=== PATIENT | male | born 1965 | race Caucasian/White ===

== ENCOUNTER 2016-04-19 08:03 | Observation (INO) ==
--- NOTE | 2016-04-19 08:05 | Emergency Department Note ---
Disposition Clinical Impression: Atrial fibrillation Qualifiers: Atrial fibrillation type: unspecified Qualified Code(s): I48.91 - Unspecified atrial fibrillation Disposition: Admitted As Inpatient Condition: Fair Referrals: Arnold Dan MD [Primary Care Provider] - Forms: ED Satisfaction Letter Time of Disposition: 10:30 Arrhythmia/Palpitations HPI - General Chief Complaint: ED Arrhythmia/Palpitations Stated Complaint: palpitations Time Seen by Provider: 04/19/16 08:04 Source: patient Nursing Notes Reviewed: Yes Vital Signs Reviewed: Yes - History of Present Illness HPI Narrative: Patient is a 50-year-old male who presents to [facility] ED with a chief complaint of new onset atrial fibrillation with RVR. He presents from same day surgery as he was scheduled for a left-sided nephrectomy secondary to a mass/"weak kidney". Patient is asymptomatic at this time. He received a Xopenex treatment prior to them noticing this. He received an EKG and was brought in for apparent atrial flutter. Denies any prior cardiac history. No other medical problems. Pt Subjective Complaint: rapid heart beat Onset (ago): unknown Duration: constant Severity: mild Associated symptoms: Reports: denies other symptoms - Related Data Home Medications Medication Instructions Recorded Confirmed Baclofen [Lioresal] 20 mg PO BID 12/22/14 04/19/16 Losartan/Hydrochlorothiazide 1 tab PO DAILY 12/22/14 04/19/16 [Hyzaar 100-25 Tablet] Pravastatin Sodium [Pravachol] 40 mg PO DAILY 12/22/14 04/19/16 TraMADol [Ultram] 50 mg PO BID 12/22/14 04/19/16 Gabapentin 600 mg PO TID 12/23/15 04/19/16 Multivitamin [Multivitamins] 1 each PO DAILY 12/23/15 04/19/16 Omeprazole [PriLOSEC] 20 mg PO BID 12/23/15 04/19/16 Oxcarbazepine 300 mg PO TID 12/23/15 04/19/16 Sertraline [Zoloft] 150 mg PO DAILY 12/23/15 04/19/16 Sitagliptin Phos/Metformin HCl 1 tab PO DAILY 12/23/15 04/19/16 [Janumet Xr 100-1,000 mg Tablet] Vitamin B Complex 1 each PO DAILY 04/19/16 04/19/16 Allergies Allergy/AdvReac Type Severity Reaction Status Date / Time No Known Allergies Allergy Verified 04/19/16 07:18 All systems ED: reviewed and negative except as stated. Past Medical History - Past Medical History Attestation: Yes The following information was validated with the patient. Source: patient Medical history: Reports: hyperlipidemia, hypertension, kidney stones Surgical history: Reports: herniorrhaphy, orthopedic, other, sinus surgery Psychiatric history: Reports: no psych history - Social History Smoking Status: Current every day smoker Smokeless Tobacco Status: No Alcohol use: Reports: occasionally Drug use: Reports: none Physical Exam - General Limitations: no limitations General appearance: alert, in no apparent distress - Head Head exam: atraumatic, normocephalic, normal inspection - Eye Eye exam: Present: normal appearance, PERRL, EOMI - ENT ENT exam: normal exam, normal oropharynx, mucous membranes moist - Neck Neck exam: Present: normal inspection, full ROM, trachea midline - Chest Chest inspection: Present: normal inspection, symmetric chest wall rise - Respiratory Respiratory exam: Present: normal lung sounds bilaterally - Cardiovascular Cardiovascular exam: Present: tachycardia, irregular rhythm - Abdominal Exam Abdominal exam: Present: soft, Non-Tender. Absent: tenderness, distention, guarding, rebound, rigidity - Extremities Exam Extremities exam: Present: normal inspection, full ROM. Absent: tenderness, pedal edema - Back Exam Back exam: Present: normal inspection, full ROM. Absent: tenderness - Neurological Exam Neurological exam: Present: alert, oriented X3 - Psychiatric Psychiatric exam: Present: normal affect, normal mood - Skin Skin exam: Present: warm, dry, intact, normal color Course Course Narrative: Patient seen and examined. Complaining of no symptoms at this time. He was found to have an elevated heart rate at same day surgery. He was given a Xopenex treatment and then they did an EKG which showed possible a flutter. He was brought in to the emergency department for further evaluation. We observed him for a period of approximately 30 minutes and there was no improvement in his heart rate. On the monitor, he appeared to have more atrial fibrillation with RVR at this time as he is irregularly irregular. We will go ahead and do a cardiac workup on him. - Reevaluation(s) Reevaluation #1: Cardiac workup was unremarkable. I spoke with tool tender Dr. Hancock who will see him on the floor. I spoke with hospitalist Dr. Jackson who would like him to have Cardizem at this time. I ordered 15 mg of IV Cardizem. Upon talking with the family again, it seems that he has had episodes of elevated heart rate for that were not addressed so the timing of when the atrial fibrillation started is unknown. Time: 10:27 Vital Signs Temperature 97.6 F 04/19/16 08:05 Pulse Rate 136 04/19/16 08:05 Respiratory Rate 18 04/19/16 08:05 Blood Pressure 133/107 04/19/16 08:05 O2 Sat by Pulse Oximetry 96 04/19/16 08:05 Temperature 97.6 F 04/19/16 08:05 Pulse Rate 137 04/19/16 08:39 Respiratory Rate 13 04/19/16 08:39 Blood Pressure 137/94 04/19/16 08:39 O2 Sat by Pulse Oximetry 96 04/19/16 08:39 Oxygen Delivery Oxygen Delivery Room Air Arrhythmia/Palpitations - Medical Records Medical records reviewed: Yes I reviewed the patient's medical records. - Lab Data Lab results reviewed: Yes I reviewed the patient's lab results. Result diagrams: 04/19/16 08:46 04/19/16 08:46 Lab Results 04/19/16 04/19/16 04/19/16 Range/Units 08:46 08:46 08:46 WBC 8.9 (4.3-11.1) K/mcL RBC 4.38 (4.19-5.50) M/mcL Hgb 13.7 (12.9-16.9) g/dL Hct 39.2 (37.5-50.1) % MCV 89.5 (83.0-100.0) fL MCH 31.3 (28.0-33.3) pg MCHC 34.9 (31.6-35.5) g/dL RDW 12.7 (11.5-14.5) % Plt Count 221 (140-400) K/mcL MPV 9.0 L (9.4-12.4) fL Immature Gran % 0.3 (0-4) % Seg Neutrophils % 53.3 % Lymphocytes % 37.2 % Monocytes % 7.1 % Eosinophils % 1.7 % Basophils % 0.4 % Neutrophils # 4.7 (1.6-8.9) K/mcL Lymphocytes # 3.3 (0.6-4.6) K/mcL Monocytes # 0.6 (0.0-1.3) K/mcL Eosinophils # 0.2 (0.0-0.6) K/mcL Basophils # 0.0 (0.0-0.2) K/mcL Sodium 139 (136-145) mEq/L Potassium 3.8 (3.5-4.5) mEq/L Chloride 107 (98-109) mEq/L Carbon Dioxide 22 (19-29) mEq/L BUN 28 H (8-26) mg/dL Creatinine 1.04 (0.72-1.25) mg/dL Est GFR ( Amer) > 60 (> 60) Est GFR (Non-Af Amer) > 60 (> 60) BUN/Creatinine Ratio 27 H (6-26) Glucose 194 H (70-99) mg/dL Calculated Osmolality 299 (280-300) Calcium 9.2 (8.6-10.8) mg/dL Troponin I 0.01 (0-0.03) ng/mL - Radiology Data Radiology results reviewed: Yes I reviewed the patient's radiology results. - EKG Data EKG attestation: Yes I reviewed and interpreted this EKG. EKG results narrative: EKG done at 726 shows atrial flutter with a rate of [address] elevation or depression. This EKG was done at same day surgery. EKG done at 806 shows atrial fibrillation with RVR with a rate of [address] elevation or depression.
--- NOTE | 2016-04-19 08:27 | Emergency Department Note ---
START Narrative - START START: I examined this patient and my medical decision-making was reviewed with the TEXTILE MACHINERY SALES REPRESENTATIVE/PA/Advanced Practice Nurse/Resident Physician. I agree with the documented findings, disposition and treatment plan as described except to the extent set forth below. ED attending note: Patient seen with emergency medicine resident Dr. Rebolledo. Please see a copy of his note for details of the H&P, evaluation, management and disposition of this patient. We independently had [id number] contact with the patient Briefly: A 50-year-old male was going to the MORNING for a left nephrectomy, was given Xopenex and they noticed he was tachycardic at 135. They were concerned about possible atrial fibrillation or atrial flutter. Patient offers no symptoms from his chest at all. No shortness of breath, no chest pain, no palpitations, no lightheadedness. Patient states that he was here about a week or so ago for "gallbladder pain", and his heart rate was in the 130s per his spouse at bedside but "nothing was done". Patient's blood pressure was otherwise within normal limits. EKG shows a sinus tachycardia with no signs of acute ischemic changes. Regular rhythm without any premature or complexes. We will observe the patient for a total of a half hour and see if this tachycardia resolves, and then consider consultation with cardiology on-call, disposition pending. Patient stable.
[2016-04-19 08:53] LABS: Basophils % 0.4 %; Eosinophils # 0.2 K/mcL (0.0-0.6); Eosinophils % 1.7 %; Hematocrit 39.2 % (37.5-50.1); Hemoglobin 13.7 g/dL (12.9-16.9); Immature Granulocytes % 0.3 % (0-4); Lymphocytes # 3.3 K/mcL (0.6-4.6); Lymphocytes % 37.2 %; Mean Corpuscular HGB Conc 34.9 g/dL (31.6-35.5); Mean Corpuscular Hemoglobin 31.3 pg (28.0-33.3); Mean Corpuscular Volume 89.5 fL (83.0-100.0); Monocytes # 0.6 K/mcL (0.0-1.3); Monocytes % 7.1 %; Neutrophils # 4.7 K/mcL (1.6-8.9); Platelet Count 221 K/mcL (140-400); Red Blood Count 4.38 M/mcL (4.19-5.50); Red Cell Distribution Width 12.7 % (11.5-14.5); Segmented Neutrophils % 53.3 %
[2016-04-19 09:07] LABS: BUN/Creatinine Ratio 27 (6-26); Blood Urea Nitrogen 28 mg/dL (8-26); Calcium 9.2 mg/dL (8.6-10.8); Carbon Dioxide 22 mEq/L (19-29); Chloride 107 mEq/L (98-109); Glucose 194 mg/dL (70-99); Osmolality,Calculated 299 (280-300); Potassium 3.8 mEq/L (3.5-4.5); Sodium 139 mEq/L (136-145); eGFR For African Americans > 60 (> 60); eGFR For Non-African Americans > 60 (> 60)
[2016-04-19 09:30] LABS: Thyroid Stimulating Hormone 0.721 mcIU/mL (0.350-4.840)
[2016-04-19] MEDS ORDERED: MOM Conc 10 ML UD.LIQ PO PRN (10:54)
[2016-04-19] MEDS ORDERED: Acetaminophen 325 MG TABLET PO PRN (10:54)
[2016-04-19] MEDS ORDERED: Naloxone 0.4 MG/ML INJ IVP PRN (10:54)
[2016-04-19] MEDS ORDERED: Ondansetron 4 MG/2 ML VIAL IVP PRN (10:54)
[2016-04-19] MEDS ORDERED: Dextrose Gel 15 GM PO PRN ×2 (10:56)
[2016-04-19] MEDS ORDERED: *HR* Dextrose 50 % in Water (Syg) 50 ML SYRINGE IVP PRN (10:56)
[2016-04-19] MEDS ORDERED: D5% in Water 1,000 ML IV PRN (10:56)
--- NOTE | 2016-04-19 11:00 | Internal Med History&Physical ---
<Magui Ortiz L - Last Filed: 04/19/16 13:33> Date of Encounter: 04/19/16 Time of Encounter: 10:32 Assessment and Plan (1) Atrial fibrillation with RVR Current visit: Yes Status: Acute New diagnosis a-fib RVR today. Rate slowed from 130s to 80s with 15mg Cardizem. Pt has been asymptomatic. HR has been elevated for 2 weeks. Pt has already been seen by cardiology. FERNANDA per cardiology Maintain heparin gtt (2) Diabetes mellitus Current visit: Yes Status: Chronic A1c 6.8 today, serum glucose 194 mg/dl despite being NPO for surgery today. Sliding scale insulin Stop home po Janumet accucheck achs Qualifiers: Diabetes mellitus type: type 2 Diabetes mellitus complication status: with unspecified complications Diabetes mellitus intermission coordinator insulin use: without intermission coordinator use Qualified Code(s): E11.8 - Type 2 diabetes mellitus with unspecified complications (3) Renal neoplasm Current visit: Yes Status: Acute Incidental finding on CT on 04/08. Pt was to have L nephrectomy today when a-fib was noticed. He is asymptomatic, creatinine 1.04, BUN only slightly elevated at 28, GFR >60. Surgery on hold for now. Pt to follow up after discharge. (4) Tobacco abuse Current visit: Yes Status: Chronic 1PPD smoker for 35 years. Is interested in smoking cessation. Nicoderm patch for admission. (5) Hypertension Current visit: Yes Status: Chronic Continue Losartan with dose change to 50mg po daily and IV Hydralazine 5mg IV q6h prn sbp >160 and dbp >100. Monitor vs q4h. Qualifiers: Hypertension type: essential hypertension Qualified Code(s): I10 - Essential (primary) hypertension Internal Medicine - H&P: HPI Chief complaint: new onset a-fib rvr Admitted From: Home Plans for Post Hospital Care: Home History of present illness: Mr. Olson is a 50 year old male with history of Type II DM, TBI and multiple ortho surgeries from trauma, recent diagnosis of renal tumor, and tobacco abuse. Pt was here today for L nephrectomy, was given a Duoneb and noted to be tachycardic. Pt was found to be in a-fib RVR in the ED. points out that this may have been going on for a while since pt was in ED 2 weeks ago for another complaint and his rate was in the 130s at that time, as well. Pt is asymptomatic, denies current or recent SOB, diaphoresis, palpitations, syncope, dizziness, or chest pain. Pt has already been seen by cardiology this admission. Pt also denies any urinary symptoms. Finding of L renal mass was incidental when he was here 2 weeks ago for RUQ pain. On exam, he is diffusely tender in lower abd. He does have L renal pelvis large staghorm calculus and 4.6 L kidney mass suspicious for renal cell carcinoma. He denies dysuria, hematuria, or flank pain. Past Med Surg Social Fam HX - Past Medical History Medical history: hyperlipidemia, hypertension, kidney stones Psychiatric history: no psych history - Past Surgical History Surgical History: herniorrhaphy, orthopedic, other, sinus surgery - Social History Smoking Status: Current every day smoker Smokeless Tobacco Status: No Alcohol use: occasionally Drug use: none Internal Medicine - H&P: Meds Baclofen [Lioresal] 20 mg PO BID 12/22/14 [History] Losartan/Hydrochlorothiazide [Hyzaar 100-25 Tablet] 1 tab PO DAILY 12/22/14 [ History] Pravastatin Sodium [Pravachol] 40 mg PO HS 12/22/14 [History] TraMADol [Ultram] 50 mg PO BID 12/22/14 [History] Gabapentin 600 mg PO TID 12/23/15 [History] Multivitamin [Multivitamins] 1 each PO DAILY 12/23/15 [History] Omeprazole [PriLOSEC] 20 mg PO BID 12/23/15 [History] Oxcarbazepine 300 mg PO TID 12/23/15 [History] Sertraline [Zoloft] 150 mg PO DAILY 12/23/15 [History] Sitagliptin Phos/Metformin HCl [Janumet Xr 100-1,000 mg Tablet] 1 tab PO DAILY 12/23/15 [History] Vitamin B Complex 1 each PO DAILY 04/19/16 [History] Allergies No Known Allergies Allergy (Verified 04/19/16 07:18) All Systems PM: A 10-system review of systems was performed and is negative for pertinent findings except as documented above in the HPI. - Constitutional Constitutional: no chills, no fever(s), no malaise, no weakness - Cardiovascular Cardiovascular ROS IM: irregular heart rhythm, no chest pain, no claudication, no diaphoresis, no dyspnea, no dyspnea on exertion, no edema, no lightheadedness , no palpitations, no syncope - Respiratory Respiratory: no cough, no dyspnea, no dyspnea on exertion, no wheezing, no pain on inspiration, no chest congestion, no pain with cough - Gastrointestinal Gastrointestinal: no constipation, no cramping, no diarrhea, no heartburn, no nausea, no vomiting - Genitourinary Genitourinary ROS male: no difficulty urinating, no dysuria, no flank pain, no urinary frequency, no urinary hesitancy, no urinary incontinence, no urinary urgency - Constitutional Vitals: Temp Pulse Resp BP Pulse Ox 97.6 F 118 16 132/106 96 04/19/16 08:05 04/19/16 09:45 04/19/16 10:12 04/19/16 10:12 04/19/16 09:45 General appearance: Present: cooperative, A&O X 3, pleasant, no acute distress - Head Head exam: Present: normal inspection - Eye Eye exam: Present: normal appearance, conjuntiva pink - ENT ENT exam: Present: mucous membranes moist, normal exam, normal external ear exam , normal oropharynx - Neck Neck exam general surgery: Absent: lymphadenopathy, tenderness - Respiratory Respiratory exam: Present: CTAB. Absent: accessory muscle use, chest wall tenderness, decreased breath sounds - Cardiovascular Cardiovascular exam: Present: RRR, +S1, +S2. Absent: diastolic murmur, systolic murmur - GI/Abdominal GI/Abdominal exam: Present: guarding, tenderness. Absent: splenomegaly - Extremities Exam Extremities exam: Present: full ROM, normal capillary refill, normal inspection , warm, radial pulses palpable and symetrical. Absent: calf tenderness, pedal edema, tenderness Additional comments: +3 vero pedal pulses. - Neurological Exam Neurological exam: Present: alert, oriented X3, strengths equal and symetr throughout. Absent: no focal deficits, facial droop, speech deficit Internal Med - H&P Results - Labs CBC & Chem 7: 04/19/16 08:46 04/19/16 08:46 - EKG Data Rate: tachycardia - EKG Data Prior EKG available for review: yes When compared to previous EKG: there are significant changes EKG comments: 04/19/16 13:12 Vent rate 134 QRS 95 QT/QTc 315/394 <OsmanyPriya E - Last Filed: 04/20/16 07:34> Date of Encounter: 04/20/16 Internal Medicine - H&P: HPI History of present illness: Mr. Olson is a 50 year old male All Systems PM: A 10-system review of systems was performed and is negative for pertinent findings except as documented above in the HPI. - Constitutional Vitals: Temp Pulse Resp BP Pulse Ox 98.9 F 75 18 122/88 97 04/20/16 03:48 04/20/16 03:48 04/20/16 03:48 04/20/16 03:48 04/20/16 03:48 Internal Med - H&P Results - Labs CBC & Chem 7: 04/20/16 04:53 04/20/16 04:53 Labs: Short CBC 04/19/16 04/20/16 Range/Units 13:19 04:53 WBC 8.5 10.1 (4.3-11.1) K/mcL Hgb 13.9 14.8 (12.9-16.9) g/dL Hct 39.9 43.0 (37.5-50.1) % Plt Count 221 221 (140-400) K/mcL Neutrophils # 5.0 (1.6-8.9) K/mcL BMP 04/20/16 04:53 Sodium 138 Potassium 4.0 Chloride 108 Carbon Dioxide 20 BUN 21 Creatinine 0.97 Glucose 131 H Calcium 9.4 - Attending Attestation I examined this patient and reviewed laboratory, imaging and all diagnostic data. My medical decision-making was reviewed with LAURA Ortiz. I agree with the documented findings, disposition and treatment plan as described above. 50 yo male with past medical history of Type II DM, and recent diagnosis of renal tumor. He was scheduled to undergo L nephrectomy but he was found tachycardic with HR in the 130 while in the pre-anesthesia care unit. EKG showed afib with HR 134. He received IV Cardizem and HR slowed down to 80. Cardiology consulted. A/p: afib with rvr. metoprolol. heparin drip for CHADs-VASC of 2. FERNANDA/DCCV in AM if afib persists.
[2016-04-19 11:15] LABS: Hemoglobin A1C 6.8 %
[2016-04-19] MEDS: Insulin LISPRO 300 UNITS/3 ML VIAL SQ SCH ×2 (11:25→17:20)
[2016-04-19 12:11] LABS: Magnesium 1.7 mg/dL (1.6-2.6); Phosphorous 1.7 mg/dL (2.3-4.7)
--- NOTE | 2016-04-19 12:16 | Cardiology Consult Note ---
<Ham Bennett - Last Filed: 04/19/16 12:44> Date of Encounter: 04/19/16 Time of Encounter: 12:08 Assessment and Plan (1) Atrial fibrillation with RVR Current Visit: Yes Status: Acute New diagnosis of atrial fibrillation with RVR. Unknown timing. HR noticed to be elevated over last two weeks. He is asymptomatic. HR improved with IV cardizem. HR in the 80's now. TSH is normal. Check TTE. Anticoagulation with coumadin or NOAC discussed. CHADS VASc=2 for HTN and DM. He is agreeable. Check TTE. If no concerning findings will start NOAC. Start heparin gtt now. Possible DCCV with FERNANDA if pt does not convert. (2) Hypertension Current Visit: Yes Status: Acute Blood pressure controlled. Qualifiers: Hypertension type: essential hypertension Qualified Code(s): I10 - Essential (primary) hypertension (3) Diabetes mellitus Current Visit: Yes Status: Chronic Per IM. Qualifiers: Diabetes mellitus type: type 2 Diabetes mellitus complication status: with unspecified complications Diabetes mellitus music internship insulin use: without alf use Qualified Code(s): E11.8 - Type 2 diabetes mellitus with unspecified complications (4) Tobacco abuse Current Visit: Yes Status: Acute Smoking cessation. Discussion w patient/family: The assessment and plan as outlined above was discussed with the patient and/or family members who expressed understanding and agreement. All questions were answered. Thank you for involving us in the care of your patient. Please call with any questions. History of Present Illness Consult date: 04/19/16 Requesting physician: Magui Ortiz Consult reason: Atrial fibrillation with RVR Chief complaint: elevated heart rates, flank pain and pelvic pain History of present illness: Mr. Liao is a 50 year old male who presented from same day surgery after being found to have atrial fibrillation with RVR. His states his heart rate was seen to be in the 130's in the emergency room two weeks ago. He was seen for N/V diarrhea and flank pain. His elevated HR were related to his severe pain at that time. Over the past two weeks his noticed his HR was running 120-130. He denies history of atrial fibrillation. Denies symptoms. Denies chest pain or SOB. Denies palpitations or dizziness. Denies diaphoresis. He was given 15 mg iv push of cardizem and given metoprolol 25 mg tablet. HR now in the 80's. Past medical history of HTN, HLD, tobacco use, diabetes type II. He was planning on having a laproscopic left nephrectomy for an atrophic kidney. Surgery was cancelled. Past Med Surg Social Fam HX - Past Medical History Medical history: diabetes, hyperlipidemia, hypertension, kidney stones Psychiatric history: no psych history - Past Surgical History Surgical History: herniorrhaphy, orthopedic, other, sinus surgery - Social History Smoking Status: Current every day smoker Smokeless Tobacco Status: No Alcohol use: occasionally Drug use: none Medications and Allergies Baclofen [Lioresal] 20 mg PO BID 12/22/14 [History] Losartan/Hydrochlorothiazide [Hyzaar 100-25 Tablet] 1 tab PO DAILY 12/22/14 [ History] Pravastatin Sodium [Pravachol] 40 mg PO HS 12/22/14 [History] TraMADol [Ultram] 50 mg PO BID 12/22/14 [History] Gabapentin 600 mg PO TID 12/23/15 [History] Multivitamin [Multivitamins] 1 each PO DAILY 12/23/15 [History] Omeprazole [PriLOSEC] 20 mg PO BID 12/23/15 [History] Oxcarbazepine 300 mg PO TID 12/23/15 [History] Sertraline [Zoloft] 150 mg PO DAILY 12/23/15 [History] Sitagliptin Phos/Metformin HCl [Janumet Xr 100-1,000 mg Tablet] 1 tab PO DAILY 12/23/15 [History] Vitamin B Complex 1 each PO DAILY 04/19/16 [History] Allergies No Known Allergies Allergy (Verified 04/19/16 07:18) All Systems Review: A 10-system review of systems was performed and is negative for pertinent findings except as documented above in the HPI. Physical Examination Vital Signs, Last 4 Hours Temp Pulse Resp BP Pulse Ox 04/19/16 11:27 97.9 F 109 16 135/80 95 04/19/16 10:12 16 132/106 General: Conversant, No Apparent Distress HEENT: Atraumatic, Normocephaly, Mucus Membranes Moist Neck: No JVD, Normal carotid pulses Cardiac: Other (irregularly irregular) Lungs: Normal Breath Sounds, No Wheeze, Rales, Rhonchi Neuro: Alert and responsive, No focal deficits noted Abdomen: Soft, Non-Tender Skin: No rashes noted on visualized skin Musculoskeletal: No Chest Wall Tenderness Extremities: No Clubbing, No Cyanosis, No Edema, Normal Pulses Results 04/19/16 08:46 04/19/16 08:46 Chest X-Ray 04/19/16 08:34 IMPRESSION: No acute cardiopulmonary process. D/ / 04/19/2016 09:03:32 Stefano Morales MD / dago Interpreting Provider: Stefano Morales MD - Imaging and Cardiology Chest Xray: report reviewed - EKG Interpretation EKG results cardiology: personally reviewed (atrial fibrillation HR [address] changes.) Consult Discharge Plan - Plan Referrals: Arnold Dan MD [Primary Care Provider] - <MarlomeganChristina - Last Filed: 04/19/16 15:42> Date of Encounter: 04/19/16 Assessment and Plan Discussion w patient/family: The assessment and plan as outlined above was discussed with the patient and/or family members who expressed understanding and agreement. All questions were answered. Thank you for involving us in the care of your patient. Please call with any questions. History of Present Illness History of present illness: Mr. Liao is a 50 year old male All Systems Review: A 10-system review of systems was performed and is negative for pertinent findings except as documented above in the HPI. Results 04/19/16 13:19 04/19/16 08:46 Lab Results 04/19/16 04/19/16 13:19 13:19 WBC 8.5 Hgb 13.9 Hct 39.9 Plt Count 221 INR 1.0 APTT 29.1 - Attending Attestation I examined this patient and my medical decision-making was reviewed with the HEALTHCARE ADVISORY SERVICES MANAGER/PA/Advanced Practice Nurse/Resident Physician. I agree with the documented findings, disposition and treatment plan. Mr. Liao presents with AF, now rate controlled before undergoing nephrectomy which was cancelled. He is asymptomatic at this time. We are awaiting an echo for review of structure and function. We discussed R/B/A of proceeding with FERNANDA /DCCV tomorrow to re-establish NSR. The patient expressed understanding and agreement. We will discuss urgency of Nephrectomy with Dr. Saenz in order to help tailor plan of care.
[2016-04-19] MEDS ORDERED: *HR* Heparin 5,000 UNIT/ML VIAL IVP PRN ×2 (12:42)
[2016-04-19] MEDS ORDERED: *HR* Heparin 5,000 UNIT/ML VIAL IVP ONE (12:42)
[2016-04-19] MEDS: Heparin 25,000 UNIT/500 ML D5W 25,000 UNIT/500 ML MLS IVC SCH (13:13)
[2016-04-19] MEDS: Nicotine 14 MG PATCH.TD24 TD SCH (13:24)
[2016-04-19 13:45] LABS: Hematocrit 39.9 % (37.5-50.1); Hemoglobin 13.9 g/dL (12.9-16.9); Mean Corpuscular HGB Conc 34.8 g/dL (31.6-35.5); Mean Corpuscular Hemoglobin 31.2 pg (28.0-33.3); Mean Corpuscular Volume 89.5 fL (83.0-100.0); Mean Platelet Volume 9.1 fL (9.4-12.4); Platelet Count 221 K/mcL (140-400); Red Blood Count 4.46 M/mcL (4.19-5.50); Red Cell Distribution Width 12.8 % (11.5-14.5)
[2016-04-19 13:57] LABS: Prothrombin Time 10.8 Seconds (9.4-12.1)
[2016-04-19 14:00] LABS: Activated Partial Thrombo Time 29.1 Seconds (26.0-36.0)
[2016-04-19] MEDS: Gabapentin 300 MG CAPSULE PO SCH ×2 (14:18→22:04)
[2016-04-19] MEDS: OXcarbazepine 150 MG TABLET PO SCH ×2 (14:18→22:05)
--- NOTE | 2016-04-19 20:07 | Electrocardiograph Report ---
[address] [place], [place] [address] Test Date: 2016-04-19 Pat Name: Romeo Olson Department: 105 Room: 2A16 Gender: M [employer]: : 1965 Requested By: Sandi Rebolledo Order Number: [id number] Reading MD: Fredy Gutierrez Measurements Intervals [place] Rate: 135 P: MT: 0 QRS: -14 QRSD: 93 T: 51 QT: 315 QTc: 394 Interpretive Statements Atrial fibrillation with rapid ventricular response SEPTAL MYOCARDIAL INFARCTION Electronically Signed On 04-19-2016 20:05:52 EST by Fredy Gutierrez
[2016-04-19] MEDS ORDERED: Insulin LISPRO 300 UNITS/3 ML VIAL SQ SCH (21:00)
[2016-04-19] MEDS: Baclofen 10 MG TABLET PO SCH (22:04)
[2016-04-19] MEDS: traMADol 50 MG TABLET PO SCH (22:05)
[2016-04-20] MEDS: Heparin 25,000 UNIT/500 ML D5W 25,000 UNIT/500 ML MLS IVC SCH (04:41)
[2016-04-20 05:44] LABS: Basophils # 0.1 K/mcL (0.0-0.2); Basophils % 0.6 %; Eosinophils # 0.2 K/mcL (0.0-0.6); Eosinophils % 1.5 %; Hemoglobin 14.8 g/dL (12.9-16.9); Immature Granulocytes % 0.4 % (0-4); Lymphocytes # 4.1 K/mcL (0.6-4.6); Lymphocytes % 40.5 %; Mean Corpuscular HGB Conc 34.4 g/dL (31.6-35.5); Mean Corpuscular Hemoglobin 30.8 pg (28.0-33.3); Mean Corpuscular Volume 89.4 fL (83.0-100.0); Mean Platelet Volume 9.4 fL (9.4-12.4); Monocytes # 0.8 K/mcL (0.0-1.3); Monocytes % 7.6 %; Platelet Count 221 K/mcL (140-400); Red Blood Count 4.81 M/mcL (4.19-5.50); Red Cell Distribution Width 12.9 % (11.5-14.5); Segmented Neutrophils % 49.4 %
[2016-04-20 05:51] LABS: BUN/Creatinine Ratio 22 (6-26); Blood Urea Nitrogen 21 mg/dL (8-26); Calcium 9.4 mg/dL (8.6-10.8); Carbon Dioxide 20 mEq/L (19-29); Chloride 108 mEq/L (98-109); Glucose 131 mg/dL (70-99); Magnesium 1.5 mg/dL (1.6-2.6); Osmolality,Calculated 291 (280-300); Sodium 138 mEq/L (136-145); eGFR For African Americans > 60 (> 60); eGFR For Non-African Americans > 60 (> 60)
[2016-04-20 05:52] LABS: Phosphorous 2.8 mg/dL (2.3-4.7)
--- NOTE | 2016-04-20 07:58 | ECHO - Doppler Report ---
Echocardiogram Name: Romeo Olson Date of Study: 04/19/2016 Date: 1965 Ht: 74.0 in Medical Record#: [id number] Age: 50 Wt: 232.0 lb Gender: Male BSA: 2.31 Order #: [id number] Location: [facility] Room #: 2A16 Reading Physician: Lew Varela DO, RED, CHRISTIAN HUA Triage Licensed Practical Nurse: Penelope Yi Ordering Physician: Magui Ortiz CNP Primary Physician: Arnold Dan MD Indications: New onset Afib RVR Impressions: Atrial fibrillation with rapid ventricular response. LVEF 55%. Normal LV chamber size and function. Mild concentric left ventricular hypertrophy. Indeterminate diastolic function. Normal right ventricular structure and function. Moderately dilated left atrium. No evidence of pulmonary hypertension. No significant valvular dysfunction. Left Ventricular Wall Motion: Rest Echo Findings All wall segments showed normal motion. Findings: Study Quality * Technically sub-optimal due to clinical status (increased HR). ECG Findings * Atrial fibrillation with rapid ventricular response. Left Ventricle * LVEF 55%. * Normal LV chamber size and function. * Mild concentric left ventricular hypertrophy. * Indeterminate diastolic function. Right Ventricle * Normal right ventricular structure and function. Left Atrium * Moderately dilated left atrium. Right Atrium * Moderately dilated right atrium. Interatrial Septum * Interatrial septum not well evaluated. Aortic Valve * Trileaflet aortic valve. * Normal aortic valve function. * No aortic regurgitation. * No aortic stenosis. Mitral Valve * Normal mitral valve structure and function. * No mitral stenosis. * Trace mitral regurgitation. Tricuspid Valve * Normal tricuspid valve structure and function. * Trace tricuspid regurgitation. * No evidence of pulmonary hypertension. Pulmonic Valve * Pulmonic valve not well visualized. * No pulmonic regurgitation. Aorta * Normally sized aortic root. Pericardium * The pericardium appears normal. IVC * Normal IVC dimensions and inspiratory collapse. Pulmonary Artery * Normal visualized portions of the main pulmonary artery. History Hypertension Diabetes Hypercholesteremia History of Smoking Years 35 Packs 1 Family History of CAD Measurements: BP: 135/ 80 2D Normal Values IVSd: 1.20 cm 0.6 - 1.0 cm LVIDd: 5.10 cm 3.7 - 5.6 cm LVPWd: 1.20 cm 0.6 - 1.1 cm LVIDs: 3.50 cm 1.5 - 3.6 cm AO: 3.70 cm < 4.0 cm LA: 5.00 cm 2.0 - 4.0cm %FS: 31.40 cm >25 % LA volume: 76 Mitral Valve Peak E:1.15 m/sec Peak E' Lat Dominic:12.4 cm/s Peak E' Med Dominic:8.87 cm/s E/E' Lat Ratio:9.3 E/E' Med Ratio:13 Tricuspid Valve TV Regurg Peak Grad: 19.00mmHg TV Regurg Peak Dominic: 2.16m/sec Updated by Lew Varela DO, RED, MELITA, FASVERONICA on 04/20/2016 7:53:49 AM electronically signed on 04/20/2016 7:54:10 AM with status of Final Wall Motion Benavides: 1=Normal, 2=Hypokinesis, 3=Akinesis, 4=Dyskinesis, 5=Aneurysmal, 6=Hyperkinetic, X=Not Visualized (Blank)=Missing
[2016-04-20] MEDS: Insulin LISPRO 300 UNITS/3 ML VIAL SQ SCH ×2 (08:39→13:54)
[2016-04-20] MEDS ORDERED: Losartan/HCTZ 50-12.5 TABLET PO SCH (09:00)
[2016-04-20] MEDS ORDERED: Vitamin B Complex/Vit C/Vit E 1 EACH TABLET PO SCH (09:00)
[2016-04-20] MEDS ORDERED: Multivit/Ca/Min/Fe/FA 1 TAB TABLET PO SCH (09:00)
--- NOTE | 2016-04-20 09:09 | Internal Med Progress Note ---
Date of Encounter: 04/20/16 Time of Encounter: 08:35 - Assessment and plan (1) Atrial fibrillation with RVR Current Visit: Yes Status: Acute Assessment and plan: Rate controlled. On IV Cardizem drip at 2.5 mg per hour. Cardiology following. High risk for complications due to IV Cardizem use. (2) Renal neoplasm Current Visit: Yes Status: Acute Assessment and plan: Follow up with urology (3) Diabetes mellitus Current Visit: Yes Status: Chronic Assessment and plan: Improved blood sugars. We will continue to monitor and continue sliding scale insulin. Qualifiers: Diabetes mellitus type: type 2 Diabetes mellitus complication status: with hyperglycemia Diabetes mellitus emt intermediate insulin use: without emt intermediate use Qualified Code(s): E11.65 - Type 2 diabetes mellitus with hyperglycemia (4) Hypertension Current Visit: Yes Status: Chronic Assessment and plan: Fairly controlled. On Lopressor. Qualifiers: Hypertension type: essential hypertension Qualified Code(s): I10 - Essential (primary) hypertension (5) Tobacco abuse Current Visit: Yes Status: Chronic Assessment and plan: Counseled patient about cessation. Has nicotine patch. - Subjective Interval history: Patient is feeling better. Denies any symptoms at this time. No chest pain . No shortness of breath palpitations. - Constitutional Vitals: Temp Pulse Resp BP Pulse Ox 98.0 F 79 14 143/97 94 L 04/20/16 07:52 04/20/16 07:52 04/20/16 07:52 04/20/16 07:52 04/20/16 07:52 General appearance: Present: cooperative, A&O X 3, pleasant, no acute distress - Respiratory Respiratory exam: Present: CTAB. Absent: accessory muscle use, rales, rhonchi, wheezes - Cardiovascular Cardiovascular exam: Present: irregular rhythm, +S1, +S2. Absent: diastolic murmur, gallop, rubs, systolic murmur - GI/Abdominal GI/Abdominal exam: Present: normal bowel sounds, soft, no peritoneal signs. Absent: distended, tenderness - Extremities Exam Extremities exam: Present: warm, radial pulses palpable and symetrical. Absent : calf tenderness, cyanotic, pedal edema Internal Medicine: Result - Labs CBC & Chem 7: 04/20/16 04:53 04/20/16 04:53 Labs: Short CBC 04/19/16 04/20/16 Range/Units 13:19 04:53 WBC 8.5 10.1 (4.3-11.1) K/mcL Hgb 13.9 14.8 (12.9-16.9) g/dL Hct 39.9 43.0 (37.5-50.1) % Plt Count 221 221 (140-400) K/mcL Neutrophils # 5.0 (1.6-8.9) K/mcL BMP 04/20/16 04:53 Sodium 138 Potassium 4.0 Chloride 108 Carbon Dioxide 20 BUN 21 Creatinine 0.97 Glucose 131 H Calcium 9.4 - ABG Interpretation ABG results: PT/INR, D-dimer PT 10.8 Seconds (9.4-12.1) 04/19/16 13:19 Consult Discharge Plan - Plan Referrals: Arnold Dan MD [Primary Care Provider] - - Attending Attestation This document has been at least partially created by [employer] recognition technology by Dr. Sommer. Errors in grammar, wording or other phrases may exist. If errors are found after the documentation is signed, they will be addressed individually in the addendum section of this document when appropriate.
[2016-04-20] MEDS ORDERED: 0.9 % Sodium Chloride 500 ML ONE (09:16)
[2016-04-20] MEDS ORDERED: 0.9 % Sodium Chloride 500 ML IVC ONE (10:19)
[2016-04-20] MEDS ORDERED: Tetracaine/Benzocaine/Butamben 200MG/SPRAY (100SPY/BOT) MM ONE (10:19)
[2016-04-20] MEDS: Baclofen 10 MG TABLET PO SCH (10:21)
[2016-04-20] MEDS: Nicotine 14 MG PATCH.TD24 TD SCH (10:21)
[2016-04-20] MEDS: OXcarbazepine 150 MG TABLET PO SCH ×2 (10:22→14:58)
[2016-04-20] MEDS: traMADol 50 MG TABLET PO SCH (10:23)
[2016-04-20] MEDS: Gabapentin 300 MG CAPSULE PO SCH ×2 (10:23→14:58)
[2016-04-20] MEDS: *HR* FentaNYL (PF) 100 MCG/2 ML VIAL IVP PRN ×5 (12:10→12:31)
[2016-04-20] MEDS: *HR* Midazolam HCl 5 MG/5 ML VIAL IVP PRN ×4 (12:10→12:30)
[2016-04-20] MEDS ORDERED: Magnesium Sulfate 2 GM in D5% in Water 100 ML IVPB ONE (13:00)
--- NOTE | 2016-04-20 13:36 | ECHO - Doppler Report ---
Cardioversion with FERNANDA Name: Romeo Olson Date of Study: 04/20/2016 Date: 1965 Ht: 74.0in Medical Record#: [id number] Age: 50 Wt: 232.0lb Gender: Male BSA: 2.31 Order #: [id number] Location: [facility] Room #: 2A12 Reading Physician: Christina Hancock DO Art History Professor: Magui De La Cruz RDCS, RVT Ordering Physician: Christina Hancock DO Primary Physician: Arnold Dan MD Indications: Arrhythmia Impressions: Successful DCCV of atrial fibrillation to NSR after 1 attempt. No evidence for LA or CAROL ANN thrombus. Visually, LVEF appears mild to moderately reduced. Mild prolapse of the PMVL with mild mitral regurgitation. Medication Given: Time Medication Dose Units Route 12:10 Versed 2 mg IV 12:10 Fentanyl 25 mcg IV 12:15 Versed 1 mg IV 12:15 Fentanyl 25 mcg IV 12:20 Versed 2 mg IV 12:20 Fentanyl 25 mcg IV 12:30 Versed 2 mg IV 12:30 Fentanyl 50 mcg IV Findings: Study Quality * Technically adequate exam. ECG Findings * Atrial fib without ectopy Left Ventricle * Mild to moderately reduced LVEF. Mitral Valve * There is mild mitral valve prolapse of the PMVL with mild MR. Left Atrium * No thrombus present. * The LA appendage flow velocity is reduced. No CAROL ANN thrombus. Procedure Summary: After explaining the risks, benefits, and alternatives of the procedure to the patient in detail and answering all questions to satisfaction, an informed consent was obtained in writing. The patient was NPO for the six hours prior to the procedure. The patient denied dysphagia, odynophagia, and loose teeth. The patient was monitored with periodic automated blood pressures and continuous pulse oximetry and telemetry. Continuous oxygen was administered by VT. The patient was placed in the full upright position and the posterior oropharynx was anesthetized as above and complete suppression of the gag reflex was obtained. The patient was then placed in the left lateral decubitus position. IV sedation was administered. Once adequate sedation was achieved, a well-lubricated anteflexed multipoint intraesophageal echocardiographic probe was inserted into the midline posterior oropharynx. Gentle pressure was applied as the patient swallowed and the esophagus was intubated without difficulty. The scope was advanced to the mid esophagus without encountering resistance. Images were obtained from the mid and upper esophagus. Images from the gastric globe were not obtained. The scope was then slowly withdrawn as the patient was continually suctioned. The patient tolerated the procedure well. Following informed consent, the patient was sedated with fentanyl and versed. After adequate sedation was achieved, cardioversion in the AP approach was done using 150 Joules of biphasic energy. Normal sinus rhythm was restored after 1 attempt(s). The patient was monitored for the standard 30 minutes post procedure. Patient able to move all 4 extremities after cardioversion. No patient complications. Attempt # 1 150 joules Complications: None History: Hypertension Diabetes Hypercholesteremia History of Smoking Years 35 Packs 1 Family History of CAD Previous Echo04/19/2016 BP 130 / 104 Updated by Christina Hancock on 04/20/2016 1:27:36 PM electronically signed on 04/20/2016 1:29:55 PM with status of Final Wall Motion Benavides: 1=Normal, 2=Hypokinesis, 3=Akinesis, 4=Dyskinesis, 5=Aneurysmal, 6=Hyperkinetic, X=Not Visualized (Blank)=Missing
[2016-04-20] MEDS ORDERED: APIXABAN 5 MG TABLET PO SCH (14:00)
--- NOTE | 2016-04-20 14:01 | Event Note ---
<Luis Mazariegos - Last Filed: 04/20/16 13:59> Date of Encounter: 04/20/16 Time of Encounter: 13:59 - Cardiology Event Note Patient successfully cardioverted. Significant first degree AV block with a WA interval of 264 ms. Recommend change to Lopressor 25 mg BID, orders placed. Begin the patient on Eliquis 5mg BID for 30 days. Stop heparin and cardizem drip. Follow-up in the outpatient cardiology clinic. We will sign off at this time. <Christina Hancock - Last Filed: 04/20/16 14:22> - Cardiology Event Note Agree with Dr. Mazariegos's event note documentation. He will follow up with us in 2-3 weeks.
--- NOTE | 2016-04-20 14:28 | Discharge Summary ---
Date of Encounter: 04/20/16 Time of Encounter: 14:25 - Discharge Diagnosis (1) Atrial fibrillation with RVR Priority: Primary Status: Acute (2) Renal neoplasm Priority: Secondary Status: Acute (3) Diabetes mellitus Priority: Secondary Status: Chronic Qualifiers: Diabetes mellitus type: type 2 Diabetes mellitus complication status: with hyperglycemia Diabetes mellitus continuous churn buttermaker insulin use: without continuous churn buttermaker use Qualified Code(s): E11.65 - Type 2 diabetes mellitus with hyperglycemia (4) Hypertension Priority: Secondary Status: Chronic Qualifiers: Hypertension type: essential hypertension Qualified Code(s): I10 - Essential (primary) hypertension (5) Tobacco abuse Priority: Secondary Status: Chronic - Discharge Medications Prescriptions: Apixaban [Eliquis] 5 mg PO BID #60 tablet Metoprolol [Lopressor] 25 mg PO BID #60 tablet Home Medications: Baclofen [Lioresal] 20 mg PO BID 12/22/14 [History] Losartan/Hydrochlorothiazide [Hyzaar 100-25 Tablet] 1 tab PO DAILY 12/22/14 [ History] Pravastatin Sodium [Pravachol] 40 mg PO HS 12/22/14 [History] TraMADol [Ultram] 50 mg PO BID 12/22/14 [History] Gabapentin 600 mg PO TID 12/23/15 [History] Multivitamin [Multivitamins] 1 each PO DAILY 12/23/15 [History] Omeprazole [PriLOSEC] 20 mg PO BID 12/23/15 [History] Oxcarbazepine 300 mg PO TID 12/23/15 [History] Sertraline [Zoloft] 150 mg PO DAILY 12/23/15 [History] Sitagliptin Phos/Metformin HCl [Janumet Xr 100-1,000 mg Tablet] 1 tab PO DAILY 12/23/15 [History] Vitamin B Complex 1 each PO DAILY 04/19/16 [History] Apixaban [Eliquis] 5 mg PO BID #60 tablet 04/20/16 [Rx] Metoprolol [Lopressor] 25 mg PO BID #60 tablet 04/20/16 [Rx] Allergies/Adverse Reactions: Allergies No Known Allergies Allergy (Verified 04/19/16 07:18) Procedures/tests Complete & Pending: Procedures Performed prior 72 hours Category Date Time Status EV echocardiogram Routine Y 04/19/16 10:56 Completed EV brian guided cardioversion Routine Y 04/20/16 08:00 Completed Date of admission: 04/19/16 09:57 Primary care physician: Arnold Dan Consults: Cardiology Discharging clinician: Yrn Sommer Anticipated date of discharge: 04/20/16 - Patient Status Disposition: Home, Self-Care Condition: Good Functional capacity at discharge: independent ambulation Overall status at discharge: patient is back to baseline - Discharge Instructions Instructions: Diabetes Mellitus Type 2 in Adults (DC), Atrial Fibrillation (DC) Follow Up With: Arnold Dan MD [Primary Care Provider] - 04/27/16 10:45 am (Please follow up as schedule!!!) Additional Instructions: With cardiology in 2-3 weeks With urology: Call to reschedule nephrectomy with a plan regarding anticoagulation - Diet and Activity Activity: resume usual activities as tolerated Diet: diabetic diet, low fat, low cholesterol, low salt diet Hospital course: Mr. Olson is a 50 year old male history of diabetes mellitus type 2, traumatic brain injury, renal tumor and hyperlipidemia, hypertension was observed in the hospital after presenting being found to have abnormal heart rhythm prior to surgery for left kidney tumor. He was found to be in atrial fibrillation with rapid ventricular response. Was placed on Cardizem drip. He does not have a Past history of atrial fibrillation. His heart rate was controlled with a Cardizem drip and cardiology was consulted. Cardiology recommended transesophageal echocardiogram and synchronized cardioversion. This procedure was done today. Patient did not have any atrial clots. His cardioversion was successful. He was on anticoagulation with heparin during his stay here and now has been transitioned to Eliquis. He will follow up with cardiology as outpatient. He did have first-degree AV block. He is on 25 mg twice daily of Lopressor for rate control. He will follow up with cardiology in 2-3 weeks in clinic. For his renal tumor he will follow-up with urology to better decide on a plan for nephrectomy now that he is on anticoagulation. - Time Spent with Patient Total time spent providing and/or coordinating discharge services: Greater than 30 minutes (35 min) - Constitutional Vitals: Temp Pulse Resp BP Pulse Ox 98.1 F 94 10 130/104 93 L 04/20/16 11:02 04/20/16 11:02 04/20/16 11:02 04/20/16 11:02 04/20/16 11:02 General appearance: Present: cooperative, A&O X 3, pleasant, no acute distress - Cardiovascular Cardiovascular exam: Present: RRR, +S1, +S2. Absent: diastolic murmur, gallop, rubs, systolic murmur - GI/Abdominal GI/Abdominal exam: Present: normal bowel sounds, soft, no peritoneal signs. Absent: distended, tenderness - Attending Attestation This document has been at least partially created by [employer] recognition technology by Dr. Sommer. Errors in grammar, wording or other phrases may exist. If errors are found after the documentation is signed, they will be addressed individually in the addendum section of this document when appropriate.
[2016-04-20 15:11] VITALS: BP 114/48
--- NOTE | 2016-04-20 17:56 | Electrocardiograph Report ---
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
--- NOTE | 2016-04-20 17:58 | Electrocardiograph Report ---
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
== END 2016-04-20 16:10 | disposition home or self-care (01) ==
LOC: EMEROO 08:03 → 2ANU 08:03
PROVIDERS: ADMIT Internal Medicine; ATTEND Internal Medicine

== ENCOUNTER 2016-05-17 14:05 | Inpatient (IN) ==
[2016-05-17] MEDS ORDERED: 0.9 % Sodium Chloride 1,000 ML IV ONE (14:16)
[2016-05-17 14:35] LABS: Basophils % 0.3 %; Eosinophils # 0.1 K/mcL (0.0-0.6); Eosinophils % 0.7 %; Hemoglobin 15.1 g/dL (12.9-16.9); Immature Granulocytes % 0.4 % (0-4); Lymphocytes # 3.7 K/mcL (0.6-4.6); Lymphocytes % 33.2 %; Mean Corpuscular HGB Conc 33.6 g/dL (31.6-35.5); Mean Corpuscular Hemoglobin 30.3 pg (28.0-33.3); Mean Corpuscular Volume 90.2 fL (83.0-100.0); Mean Platelet Volume 8.9 fL (9.4-12.4); Monocytes # 0.6 K/mcL (0.0-1.3); Monocytes % 5.5 %; Neutrophils # 6.7 K/mcL (1.6-8.9); Platelet Count 254 K/mcL (140-400); Red Blood Count 4.99 M/mcL (4.19-5.50); Red Cell Distribution Width 12.6 % (11.5-14.5); Segmented Neutrophils % 59.9 %
[2016-05-17 14:50] LABS: Alanine Aminotransferase 18 Units/L (0-55); Albumin/Globulin Ratio 1.1 (1.1-2.2); Alkaline Phosphatase 85 Units/L (38-126); Aspartate Amino Transferase 16 Units/L (5-34); BUN/Creatinine Ratio 14 (6-26); Bilirubin,Total 0.5 mg/dL (0.2-1.2); Blood Urea Nitrogen 16 mg/dL (8-26); Calcium 9.9 mg/dL (8.6-10.8); Carbon Dioxide 31 mEq/L (19-29); Chloride 102 mEq/L (98-109); Globulin 3.6 g/dL (2.4-3.5); Glucose 207 mg/dL (70-99); Osmolality,Calculated 303 (280-300); Potassium 4.4 mEq/L (3.5-4.5); Sodium 143 mEq/L (136-145); Total Protein 7.6 g/dL (6.0-8.3); eGFR For African Americans > 60 (> 60); eGFR For Non-African Americans > 60 (> 60)
--- NOTE | 2016-05-17 15:06 | Emergency Department Note ---
Disposition Clinical Impression: Atrial flutter Qualifiers: Atrial flutter type: typical Qualified Code(s): I48.3 - Typical atrial flutter Disposition: Admitted As Inpatient Condition: Good Referrals: Arnold Dan MD [Primary Care Provider] - Forms: ED Satisfaction Letter Arrhythmia/Palpitations HPI - General Chief Complaint: ED Arrhythmia/Palpitations Stated Complaint: "A-Fib" Time Seen by Provider: 05/17/16 14:15 Source: patient Limitations: no limitations Nursing Notes Reviewed: Yes Vital Signs Reviewed: Yes - History of Present Illness HPI Narrative: patient comes with complaint of elevated heart rate. Patient states he felt pounding in his chest which is similar to his had the past. Patient was seen here on 05/14/2016 and was slated for admission but decided to sign himself out AGAINST MEDICAL ADVICE. Patient state his symptoms worsen states he return to emergency department. Patient denies chest pain denies dizziness. Just feels that his heart is beating fast. Patient denies numbness tingling associated with this. - Related Data Home Medications Medication Instructions Recorded Confirmed Baclofen [Lioresal] 20 mg PO BID 12/22/14 04/19/16 Losartan/Hydrochlorothiazide 1 tab PO DAILY 12/22/14 04/19/16 [Hyzaar 100-25 Tablet] Pravastatin Sodium [Pravachol] 40 mg PO HS 12/22/14 04/19/16 TraMADol [Ultram] 50 mg PO BID 12/22/14 04/19/16 Gabapentin 600 mg PO TID 12/23/15 04/19/16 Multivitamin [Multivitamins] 1 each PO DAILY 12/23/15 04/19/16 Omeprazole [PriLOSEC] 20 mg PO BID 12/23/15 04/19/16 Oxcarbazepine 300 mg PO TID 12/23/15 04/19/16 Sertraline [Zoloft] 150 mg PO DAILY 12/23/15 04/19/16 Sitagliptin Phos/Metformin HCl 1 tab PO DAILY 12/23/15 04/19/16 [Janumet Xr 100-1,000 mg Tablet] Vitamin B Complex 1 each PO DAILY 04/19/16 04/19/16 Previous Rx's Medication Instructions Recorded Apixaban [Eliquis] 5 mg PO BID #60 tablet 04/20/16 Metoprolol [Lopressor] 25 mg PO BID #60 tablet 04/20/16 Allergies Allergy/AdvReac Type Severity Reaction Status Date / Time [facility]ulag[facility] AdvReac Shakiness Verified 05/14/16 16:38 All systems ED: reviewed and negative except as stated. Past Medical History - Past Medical History Source: patient Medical history: Reports: atrial fibrillation, hyperlipidemia, hypertension, kidney stones Surgical history: Reports: herniorrhaphy, orthopedic, other, sinus surgery Psychiatric history: Reports: no psych history - Social History Smoking Status: Current every day smoker Smokeless Tobacco Status: No Alcohol use: Reports: occasionally Drug use: Reports: none Physical Exam - General Limitations: no limitations General appearance: alert - Head Head exam: atraumatic, normocephalic, normal inspection - Eye Eye exam: Present: normal appearance, PERRL, EOMI - ENT ENT exam: normal exam, normal oropharynx, mucous membranes moist - Neck Neck exam: Present: normal inspection, full ROM, trachea midline - Chest Chest inspection: Present: normal inspection, symmetric chest wall rise - Respiratory Respiratory exam: Present: normal lung sounds bilaterally - Cardiovascular Cardiovascular exam: Present: normal rhythm, tachycardia, normal heart sounds - Abdominal Exam Abdominal exam: Present: soft, Non-Tender. Absent: tenderness, distention, guarding, rebound, rigidity - Extremities Exam Extremities exam: Present: normal inspection, full ROM. Absent: tenderness, pedal edema - Back Exam Back exam: Present: normal inspection, full ROM. Absent: tenderness - Neurological Exam Neurological exam: Present: alert, oriented X3 - Psychiatric Psychiatric exam: Present: normal affect, normal mood - Skin Skin exam: Present: warm, dry, intact, normal color Course Vital Signs Temperature 97.3 F L 05/17/16 14:08 Pulse Rate 137 05/17/16 14:08 Respiratory Rate 14 05/17/16 14:08 Blood Pressure 135/90 05/17/16 14:08 O2 Sat by Pulse Oximetry 97 05/17/16 14:08 Temperature 97.3 F L 05/17/16 14:08 Pulse Rate 113 05/17/16 15:34 Respiratory Rate 16 05/17/16 15:34 Blood Pressure 113/88 05/17/16 15:34 O2 Sat by Pulse Oximetry 95 05/17/16 15:34 Oxygen Delivery Oxygen Delivery Room Air Arrhythmia/Palpitations - Differential Diagnosis Differential Diagnosis: Likely: palpitations, anxiety, sinus tachycardia, artial arrhythmia, supraventricular tachycardia, ventricular tachycardia - Lab Data Lab results reviewed: Yes I reviewed the patient's lab results. Result diagrams: 05/17/16 14:28 05/17/16 14:28 Lab Results 05/17/16 05/17/16 05/17/16 Range/Units 14:28 14:28 14:28 WBC 11.2 H (4.3-11.1) K/mcL RBC 4.99 (4.19-5.50) M/mcL Hgb 15.1 (12.9-16.9) g/dL Hct 45.0 (37.5-50.1) % MCV 90.2 (83.0-100.0) fL MCH 30.3 (28.0-33.3) pg MCHC 33.6 (31.6-35.5) g/dL RDW 12.6 (11.5-14.5) % Plt Count 254 (140-400) K/mcL MPV 8.9 L (9.4-12.4) fL Immature Gran % 0.4 (0-4) % Seg Neutrophils % 59.9 % Lymphocytes % 33.2 % Monocytes % 5.5 % Eosinophils % 0.7 % Basophils % 0.3 % Neutrophils # 6.7 (1.6-8.9) K/mcL Lymphocytes # 3.7 (0.6-4.6) K/mcL Monocytes # 0.6 (0.0-1.3) K/mcL Eosinophils # 0.1 (0.0-0.6) K/mcL Basophils # 0.0 (0.0-0.2) K/mcL APTT 33.8 (26.0-36.0) Seconds Sodium 143 (136-145) mEq/L Potassium 4.4 (3.5-4.5) mEq/L Chloride 102 (98-109) mEq/L Carbon Dioxide 31 H (19-29) mEq/L BUN 16 (8-26) mg/dL Creatinine 1.14 (0.72-1.25) mg/dL Est GFR ( Amer) > 60 (> 60) Est GFR (Non-Af Amer) > 60 (> 60) BUN/Creatinine Ratio 14 (6-26) Glucose 207 H (70-99) mg/dL Calculated Osmolality 303 H (280-300) Calcium 9.9 (8.6-10.8) mg/dL Total Bilirubin 0.5 (0.2-1.2) mg/dL AST 16 (5-34) Units/L ALT 18 (0-55) Units/L Alkaline Phosphatase 85 (38-126) Units/L Troponin I (0-0.03) ng/mL Serum Total Protein 7.6 (6.0-8.3) g/dL Albumin 4.0 (3.5-5.0) g/dL Globulin 3.6 H (2.4-3.5) g/dL Albumin/Globulin Ratio 1.1 (1.1-2.2) / Range/Units 14:28 WBC (4.3-11.1) K/mcL RBC (4.19-5.50) M/mcL Hgb (12.9-16.9) g/dL Hct (37.5-50.1) % MCV (83.0-100.0) fL MCH (28.0-33.3) pg MCHC (31.6-35.5) g/dL RDW (11.5-14.5) % Plt Count (140-400) K/mcL MPV (9.4-12.4) fL Immature Gran % (0-4) % Seg Neutrophils % % Lymphocytes % % Monocytes % % Eosinophils % % Basophils % % Neutrophils # (1.6-8.9) K/mcL Lymphocytes # (0.6-4.6) K/mcL Monocytes # (0.0-1.3) K/mcL Eosinophils # (0.0-0.6) K/mcL Basophils # (0.0-0.2) K/mcL APTT (26.0-36.0) Seconds Sodium (136-145) mEq/L Potassium (3.5-4.5) mEq/L Chloride (98-109) mEq/L Carbon Dioxide (19-29) mEq/L BUN (8-26) mg/dL Creatinine (0.72-1.25) mg/dL Est GFR ( Amer) (> 60) Est GFR (Non-Af Amer) (> 60) BUN/Creatinine Ratio (6-26) Glucose (70-99) mg/dL Calculated Osmolality (280-300) Calcium (8.6-10.8) mg/dL Total Bilirubin (0.2-1.2) mg/dL AST (5-34) Units/L ALT (0-55) Units/L Alkaline Phosphatase (38-126) Units/L Troponin I 0.01 (0-0.03) ng/mL Serum Total Protein (6.0-8.3) g/dL Albumin (3.5-5.0) g/dL Globulin (2.4-3.5) g/dL Albumin/Globulin Ratio (1.1-2.2) - Radiology Data Radiology results reviewed: Yes I reviewed the patient's radiology results. Chest X-Ray 05/17/16 14:15 IMPRESSION: Mild cardiomegaly and congestion. No evidence of pleural disease, CHF or focal infiltrates. D/ / 05/17/2016 15:06:55 Danita Hardwick MD / Char Childs Interpreting Provider: Danita Hardwick MD - EKG Data EKG attestation: Yes I reviewed and interpreted this EKG. EKG results narrative: Rate of 150, regular with flutter waves. Rate: tachycardia Rhythm: A. flutter [place]/QRS: normal Critical Care Time Total Critical Care Time: 45 Attestation: Critical care performed: Time is exclusive of separately billable procedures. Time includes: direct patient care, patient reassessment, coordination of patient care, interpretation of data (laboratory data, radiology data, and respiratory data), review of patient's medical records, medical consultation and documentation of patient care. Procedures included in critical care time: Procedures excluded from critical care time:
[2016-05-17] MEDS ORDERED: Naloxone 0.4 MG/ML INJ IVP PRN (16:13)
[2016-05-17] MEDS ORDERED: traMADol 50 MG TABLET PO PRN (16:18)
[2016-05-17] MEDS ORDERED: *HR* OxyCODONE/APAP 5/325 TABLET PO PRN (16:18)
--- NOTE | 2016-05-17 16:18 | Internal Med History&Physical ---
Date of Encounter: 05/17/16 Time of Encounter: 16:18 Assessment and Plan (1) Atrial fibrillation with RVR Current visit: Yes Status: Acute Patient with atrial fibrillation with rapid ventricular response. Will place patient in hospital for observation with telemetry. Cardizem intravenously to control heart rate. If no improvement, consult cardiology for further management. Continue metoprolol. High risk for complications due to intravenous diltiazem use (2) Atrial fibrillation Current visit: Yes Status: Chronic Patient with persistent atrial fibrillation. On Eliquis for anticoagulation. For will try to control rate with intravenous Cardizem. Qualifiers: Atrial fibrillation type: persistent Qualified Code(s): I48.1 - Persistent atrial fibrillation (3) Diabetes mellitus Current visit: Yes Status: Chronic Monitor blood sugars. Sliding scale insulin. Diabetic diet. 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 Resume home medications. Qualifiers: Hypertension type: essential hypertension Qualified Code(s): I10 - Essential (primary) hypertension Internal Medicine - H&P: HPI Chief complaint: Palpitations Admitted From: Emergency Dept History of present illness: Mr. Olson is a 50 year old male with a history of atrial fibrillation, hyperlipidemia and hypertension nephrolithiasis presented to the ER with complaints of palpitations. He has been having this these episodes off and on since he was diagnosed with A. fib in March of this year. However since yesterday it has been more persistent. No relation to activity. No dizziness or lightheadedness. He denies any chest pain. Denies any shortness of breath. Denies any dyspnea on exertion. No pedal edema orthopnea or PND. No nausea or vomiting or diarrhea. No fever chills or night sweats. Past Med Surg Social Fam HX - Past Medical History Attestation: Yes The following information was validated with the patient. Medical history: atrial fibrillation, hyperlipidemia, hypertension, kidney stones, other (Renal mass) Psychiatric history: no psych history - Past Surgical History Surgical History: herniorrhaphy, orthopedic, other, sinus surgery - Social History Smoking Status: Current every day smoker Smokeless Tobacco Status: No Alcohol use: occasionally Drug use: none Internal Medicine - H&P: Meds Baclofen [Lioresal] 20 mg PO BID 12/22/14 [History] Losartan/Hydrochlorothiazide [Hyzaar 100-25 Tablet] 1 tab PO DAILY 12/22/14 [ History] Pravastatin Sodium [Pravachol] 40 mg PO HS 12/22/14 [History] TraMADol [Ultram] 50 mg PO BID PRN 12/22/14 [History] Gabapentin 600 mg PO TID 12/23/15 [History] Multivitamin [Multivitamins] 1 each PO DAILY 12/23/15 [History] Omeprazole [PriLOSEC] 20 mg PO BID 12/23/15 [History] Oxcarbazepine 300 mg PO TID 12/23/15 [History] Sertraline [Zoloft] 150 mg PO DAILY 12/23/15 [History] Sitagliptin Phos/Metformin HCl [Janumet Xr 100-1,000 mg Tablet] 1 tab PO DAILY 12/23/15 [History] Vitamin B Complex 1 each PO DAILY 04/19/16 [History] Apixaban [Eliquis] 5 mg PO BID #60 tablet 04/20/16 [Rx] Metoprolol [Lopressor] 25 mg PO BID #60 tablet 04/20/16 [Rx] Oxycodone HCl/Acetaminophen [Percocet 5-325 mg Tablet] 1 each PO Q6H PRN [History] [facility]ies [facility] Adverse Reaction (Verified 05/14/16 16:38) Shakiness All Systems PM: A 10-system review of systems was performed and is negative for pertinent findings except as documented above in the HPI. - Constitutional Constitutional: no chills, no fever(s), no night sweats - EENT Eyes: no change in vision, no discharge, no pain, no photophobia Ears: no ear discharge, no ear pain, no tinnitus Nose, mouth and throat: no dysphagia, no nasal discharge, no neck pain, no sore throat - Cardiovascular Cardiovascular ROS IM: palpitations, no chest pain, no diaphoresis, no dyspnea, no lightheadedness, no syncope - Respiratory Respiratory: no cough, no dyspnea, no wheezing, no excessive phlegm production - Gastrointestinal Gastrointestinal: no abdominal pain, no diarrhea, no hematemesis, no hematochezia, no melena, no nausea, no vomiting - Musculoskeletal Musculoskeletal ROS IM: no numbness, no tingling - Neurological Neurological ROS: no confusion, no convulsions, no focal weakness, no numbness, no tingling, no tremor(s) - Hematologic/Lymphatic Hematologic/Lymphatic: no easy bruising - Constitutional Vitals: Temp Pulse Resp BP Pulse Ox 97.3 F L 139 16 120/90 97 05/17/16 14:08 05/17/16 16:03 05/17/16 16:03 05/17/16 16:03 05/17/16 16:03 General appearance: Present: cooperative, mild distress, A&O X 3, answers questions appropriately - Eye Eye exam: Present: EOMI, PERRL, conjuntiva pink, sclera anicteric - ENT ENT exam: Present: mucous membranes moist - Neck Neck exam general surgery: Present: supple, trachea midline. Absent: lymphadenopathy - Respiratory Respiratory exam: Present: CTAB. Absent: accessory muscle use, rales, rhonchi, wheezes - Cardiovascular Cardiovascular exam: Present: irregular rhythm, +S1, +S2, tachycardia. Absent: diastolic murmur, gallop, rubs, systolic murmur - GI/Abdominal GI/Abdominal exam: Present: normal bowel sounds, soft, no peritoneal signs. Absent: distended, tenderness - Extremities Exam Extremities exam: Present: warm, radial pulses palpable and symetrical. Absent : calf tenderness, cyanotic, pedal edema - Neurological Exam Neurological exam: Present: CN II-XII intact, oriented X3, no focal deficits. Absent: pronater drift, facial droop, speech deficit - Skin Skin exam: Present: dry, intact Internal Med - H&P Results - Labs CBC & Chem 7: 05/17/16 14:28 05/17/16 14:28 - EKG Data -: EKG Interpreted by Myself - EKG Data EKG comments: 05/17/16 16:46 EKG shows atrial fibrillation with rapid ventricular response 05/17/16 16:46 - Impressions Impressions Chest X-Ray 05/17/16 14:15 IMPRESSION: Mild cardiomegaly and congestion. No evidence of pleural disease, CHF or focal infiltrates. D/ / 05/17/2016 15:06:55 Danita Hardwick MD / Char Childs Interpreting Provider: Danita Hardwick MD - Attending Attestation This document has been at least partially created by [employer] recognition technology by Dr. Sommer. Errors in grammar, wording or other phrases may exist. If errors are found after the documentation is signed, they will be addressed individually in the addendum section of this document when appropriate.
[2016-05-17] MEDS ORDERED: D5% in Water 1,000 ML IV PRN (16:51)
[2016-05-17] MEDS ORDERED: Dextrose Gel 15 GM PO PRN ×2 (16:51)
[2016-05-17] MEDS ORDERED: *HR* Dextrose 50 % in Water (Syg) 50 ML SYRINGE IVP PRN (16:51)
[2016-05-17 17:30] LABS: Thyroid Stimulating Hormone 0.647 mcIU/mL (0.350-4.840)
[2016-05-17] MEDS: APIXABAN 5 MG TABLET PO SCH (21:03)
[2016-05-17] MEDS: OXcarbazepine 150 MG TABLET PO SCH (21:04)
[2016-05-17] MEDS: Gabapentin 300 MG CAPSULE PO SCH (21:05)
[2016-05-17] MEDS: Baclofen 10 MG TABLET PO SCH (21:05)
[2016-05-17] MEDS: Insulin LISPRO 300 UNITS/3 ML VIAL SQ SCH (21:05)
[2016-05-18 05:09] LABS: Basophils % 0.3 %; Eosinophils # 0.2 K/mcL (0.0-0.6); Eosinophils % 1.6 %; Hematocrit 43.8 % (37.5-50.1); Hemoglobin 15.2 g/dL (12.9-16.9); Immature Granulocytes % 0.5 % (0-4); Lymphocytes # 3.8 K/mcL (0.6-4.6); Lymphocytes % 36.4 %; Mean Corpuscular HGB Conc 34.7 g/dL (31.6-35.5); Mean Corpuscular Hemoglobin 30.9 pg (28.0-33.3); Mean Platelet Volume 9.2 fL (9.4-12.4); Monocytes # 0.8 K/mcL (0.0-1.3); Monocytes % 7.6 %; Neutrophils # 5.6 K/mcL (1.6-8.9); Platelet Count 239 K/mcL (140-400); Red Blood Count 4.92 M/mcL (4.19-5.50); Red Cell Distribution Width 12.7 % (11.5-14.5); Segmented Neutrophils % 53.6 %
[2016-05-18 05:26] LABS: BUN/Creatinine Ratio 13 (6-26); Blood Urea Nitrogen 13 mg/dL (8-26); Calcium 9.2 mg/dL (8.6-10.8); Carbon Dioxide 26 mEq/L (19-29); Chloride 105 mEq/L (98-109); Glucose 147 mg/dL (70-99); Osmolality,Calculated 295 (280-300); Potassium 4.4 mEq/L (3.5-4.5); Sodium 141 mEq/L (136-145); eGFR For African Americans > 60 (> 60); eGFR For Non-African Americans > 60 (> 60)
[2016-05-18] MEDS ORDERED: NON-FORMULARY MEDICATION 1 EACH EACH (Sitagliptin Phos/Metformin Hcl [Janumet Xr 100-1,000 PO SCH (09:00)
[2016-05-18] MEDS: Losartan/HCTZ 50-12.5 TABLET PO SCH (09:21)
[2016-05-18] MEDS: Vitamin B Complex/Vit C/Vit E 1 EACH TABLET PO SCH (09:23)
[2016-05-18] MEDS: OXcarbazepine 150 MG TABLET PO SCH ×3 (09:23→21:41)
[2016-05-18] MEDS: Gabapentin 300 MG CAPSULE PO SCH ×3 (09:23→21:42)
[2016-05-18] MEDS: APIXABAN 5 MG TABLET PO SCH ×2 (09:23→21:43)
[2016-05-18] MEDS: Multivit/Ca/Min/Fe/FA 1 TAB TABLET PO SCH (09:24)
[2016-05-18] MEDS: Insulin LISPRO 300 UNITS/3 ML VIAL SQ SCH ×4 (09:24→21:43)
[2016-05-18] MEDS: Baclofen 10 MG TABLET PO SCH ×2 (09:24→21:41)
--- NOTE | 2016-05-18 10:33 | Internal Med Progress Note ---
Date of Encounter: 05/18/16 Time of Encounter: 10:31 - Assessment and plan (1) Atrial fibrillation with RVR Current Visit: Yes Status: Acute Assessment and plan: Unclear etiology, patient was cardioverted last month, heart rate is persistently elevated between 100- 150 Increase metoprolol from 25 twice a day to 50 mg twice a day Continue Cardizem drip Consult cardiology Ordered a UA, no clear trigger (2) Diabetes mellitus Current Visit: Yes Status: Chronic Assessment and plan: Continue insulin sliding scale Qualifiers: Diabetes mellitus type: type 2 Diabetes mellitus complication status: with hyperglycemia Diabetes mellitus [facility] insulin use: without [facility] use Qualified Code(s): E11.65 - Type 2 diabetes mellitus with hyperglycemia (3) Renal neoplasm Current Visit: No Status: Acute Assessment and plan: CT scan from April shows an large obstructive Staghorn calculus in the left renal pelvis, a 4.6 cm mass in the mid inferior left kidney concerning for renal cell carcinoma The patient denies any dysuria at the moment, we will order a UA as there is no clear trigger for his elevated heart rate The patient was scheduled to have a Left nephrectomy , we will try to contact urology if we are able to control his heart rate as apparently last month he was recommended to get his heart rate under control before scheduling any surgical procedure (4) TBI (traumatic brain injury) Current Visit: No Status: Chronic Qualifiers: Encounter type: sequela Qualified Code(s): S06.9X0S - Unspecified intracranial injury without loss of consciousness, sequela (5) Hypertension Current Visit: Yes Status: Chronic Qualifiers: Hypertension type: essential hypertension Qualified Code(s): I10 - Essential (primary) hypertension (6) Tobacco abuse Current Visit: No Status: Chronic Assessment and plan: Smoking cessation counseling Nicotine patch offered - Subjective Interval history: The patient denies any palpitations at the moment, no shortness of breath, no chest pain, no fevers or chills. Has been complaining of a headache since Saturday when he noticed that his heart rate was very elevated. - Constitutional Vitals: Temp Pulse Resp BP Pulse Ox 97.9 F 73 16 135/93 97 05/18/16 07:57 05/18/16 07:57 05/18/16 07:57 05/18/16 07:57 05/18/16 07:57 General appearance: Present: cooperative, mild distress, A&O X 3, answers questions appropriately - Head Head exam: Present: atraumatic, normocephalic - Eye Eye exam: Present: PERRL, conjuntiva pink, sclera anicteric Pupils: Present: PERRL - Neck Neck exam general surgery: Present: supple, trachea midline. Absent: lymphadenopathy - Respiratory Respiratory exam: Present: CTAB. Absent: accessory muscle use, rales, rhonchi, wheezes - Cardiovascular Cardiovascular exam: Present: irregular rhythm, RRR, +S1, +S2, tachycardia. Absent: diastolic murmur, gallop, rubs, systolic murmur - GI/Abdominal GI/Abdominal exam: Present: normal bowel sounds, soft, no peritoneal signs. Absent: distended, tenderness - Extremities Exam Extremities exam: Present: warm, radial pulses palpable and symetrical. Absent : calf tenderness, cyanotic, pedal edema - Neurological Exam Neurological exam: Present: CN II-XII intact, oriented X3, no focal deficits. Absent: pronater drift, facial droop, speech deficit - Skin Skin exam: Present: dry, intact Internal Medicine: Result - Labs CBC & Chem 7: 05/18/16 04:40 05/18/16 04:40 Labs: Short CBC 05/18/16 Range/Units 04:40 WBC 10.5 (4.3-11.1) K/mcL Hgb 15.2 (12.9-16.9) g/dL Hct 43.8 (37.5-50.1) % Plt Count 239 (140-400) K/mcL Neutrophils # 5.6 (1.6-8.9) K/mcL BMP 05/18/16 04:40 Sodium 141 Potassium 4.4 Chloride 105 Carbon Dioxide 26 BUN 13 Creatinine 1.01 Glucose 147 H Calcium 9.2 Consult Discharge Plan - Plan Referrals: Arnold Dan MD [Primary Care Provider] -
--- NOTE | 2016-05-18 12:31 | Cardiology Consult Note ---
Date of Encounter: 05/18/16 Time of Encounter: 11:00 Assessment and Plan (1) Atrial flutter Current Visit: Yes Status: Acute Patient with history of afib versus aflutter on previous hospitalization 04/19/16 Patient had FERNANDA cardioversion per Dr. Hancock on 04/20/16 with return to NSR after one attempt ECHO 04/19/16 demonstrated afib RVR, LVEF 55%, mild LVH, normal LV chamber and function, intermediate diastolic function, normal RV structure and function Patient currently on Metoprolol 50mg BID and Cardizem ggt at 5mg/hr Primary team increased Metoprolol from 25mg to 50mg BID today EKG upon admission atrial flutter with HR 135 Today, EKG consistent with atrial flutter with rate-controlled 80s-902 Per nurse, patient's rate greater than 100 with minimal activity Plan: Continue Metoprolol 50mg BID Plan to increase cardizem drip to 10mg/hr Consider increasing BB tomorrow to achieve tighter rate control Will medically manage patient at this time with plan for outpatient ablation Qualifiers: Atrial flutter type: typical Qualified Code(s): I48.3 - Typical atrial flutter (2) Hypertension Current Visit: Yes Status: Chronic Stable Patient's BP tolerating BB and cardizem at this time Monitor blood pressure Resume Hyzaar Qualifiers: Hypertension type: essential hypertension Qualified Code(s): I10 - Essential (primary) hypertension (3) Hyperlipidemia Current Visit: Yes Status: Acute Continue statin Qualifiers: Hyperlipidemia type: unspecified Qualified Code(s): E78.5 - Hyperlipidemia , unspecified (4) Diabetes mellitus Current Visit: Yes Status: Chronic Management per primary team Qualifiers: Diabetes mellitus type: type 2 Diabetes mellitus complication status: with hyperglycemia Diabetes mellitus group home insulin use: without group home use Qualified Code(s): E11.65 - Type 2 diabetes mellitus with hyperglycemia (5) Tobacco abuse Current Visit: No Status: Chronic Smoking cessation assistance offered Discussion w patient/family: The assessment and plan as outlined above was discussed with the patient and/or family members who expressed understanding and agreement. All questions were answered. Thank you for involving us in the care of your patient. Please call with any questions. History of Present Illness Consult date: 05/18/16 Requesting physician: Bossman H Jyoti-Matovelle Consult reason: Afib Chief complaint: Headache, racing heart History of present illness: Mr. Olson is a 50 year old male who presented to the hospital on 05/14/16 with racing heart. Patient states that he was recently diagnosed with afib in April. Patient had a FERNANDA cardioversion per Dr. Hernandez on 04/20/16 with return to NSR after one attempt. Patient was discharged to home. Since the ablation, patient has been checking his HR daily. On 05/14/16, patient noted that his HR was greater than 120. He presented to [facility] for this problem and EKG revealed atrial flutter. Patient was going to be admitted, but decided to sign out AMA because his daughter was in labor at the time. Patient states that he had onset of a new headache yesterday. 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 Patient describes new headache as sharp , throbbing sensations in the frontal and parietal region. Patient states that he could feel his heartbeat in his head. Patient admits to racing heart. Denied palpitations. Patient has not had a stress test or heart cath in the past. Patient states that he has been compliant with Metoprolol and Eliquis following his last hospitalization. Past Med Surg Social Fam HX - Past Medical History Medical history: atrial fibrillation, hyperlipidemia, hypertension, kidney stones, other Psychiatric history: no psych history - Past Surgical History Surgical History: herniorrhaphy, orthopedic, other, sinus surgery - Social History Smoking Status: Current every day smoker Smokeless Tobacco Status: No Alcohol use: occasionally Drug use: none Medications and Allergies Baclofen [Lioresal] 20 mg PO BID 12/22/14 [History] Losartan/Hydrochlorothiazide [Hyzaar 100-25 Tablet] 1 tab PO DAILY 12/22/14 [ History] Pravastatin Sodium [Pravachol] 40 mg PO HS 12/22/14 [History] TraMADol [Ultram] 50 mg PO BID PRN 12/22/14 [History] Gabapentin 600 mg PO TID 12/23/15 [History] Multivitamin [Multivitamins] 1 each PO DAILY 12/23/15 [History] Omeprazole [PriLOSEC] 20 mg PO BID 12/23/15 [History] Oxcarbazepine 300 mg PO TID 12/23/15 [History] Sertraline [Zoloft] 150 mg PO DAILY 12/23/15 [History] Sitagliptin Phos/Metformin HCl [Janumet Xr 100-1,000 mg Tablet] 1 tab PO DAILY 12/23/15 [History] Vitamin B Complex 1 each PO DAILY 04/19/16 [History] Apixaban [Eliquis] 5 mg PO BID #60 tablet 04/20/16 [Rx] Metoprolol [Lopressor] 25 mg PO BID #60 tablet 04/20/16 [Rx] Oxycodone HCl/Acetaminophen [Percocet 5-325 mg Tablet] 1 each PO Q6H PRN [History] Allergies dulaglutide [From [facility]] Adverse Reaction (Verified 05/14/16 16:38) Shakiness All Systems Review: A 10-system review of systems was performed and is negative for pertinent findings except as documented above in the HPI. Physical Examination Vital Signs, Last 4 Hours Temp Pulse Resp BP Pulse Ox 05/18/16 11:05 99.5 F 102 16 119/80 95 05/18/16 09:00 95 General: Conversant, No Apparent Distress HEENT: Atraumatic, Normocephaly, Mucus Membranes Moist Neck: No JVD, Normal carotid pulses Cardiac: Normal S1 and S2, No Murmur, Other (Irregular rhythm with rate 90) Lungs: Normal Breath Sounds, No Wheeze, Rales, Rhonchi Neuro: Alert and responsive, No focal deficits noted Abdomen: Soft, Non-Tender Skin: No rashes noted on visualized skin Musculoskeletal: No Chest Wall Tenderness Extremities: No Clubbing, No Cyanosis, No Edema, Normal Pulses Results 05/18/16 04:40 05/18/16 04:40 Lab Results 05/18/16 05/18/16 04:40 04:40 WBC 10.5 Hgb 15.2 Hct 43.8 Plt Count 239 Sodium 141 Potassium 4.4 Chloride 105 Carbon Dioxide 26 BUN 13 Creatinine 1.01 Glucose 147 H Calcium 9.2 Consult Discharge Plan - Plan Referrals: Arnold Dan MD [Primary Care Provider] -
[2016-05-18 12:51] LABS: Bilirubin,Urine Negative (Negative); Blood,Urine Negative (Negative); Clarity,Urine Clear (Clear); Color,Urine Yellow (Yellow); Glucose,Urine (UA) Normal (Normal); Ketones,Urine Negative (Negative); Leukocyte Esterase,Urine Negative (Negative); Nitrite,Urine Negative (Negative); Protein,Urine Trace mg/dL (Neg-Trace); Specific Gravity,Urine 1.018 (1.010-1.025); Urobilinogen,Urine Normal (Normal)
[2016-05-18 12:54] LABS: Bacteria,Urine None Seen per hpf (None-Few); Hyaline Casts,Urine None Seen per lpf (None-Few); Squamous Epithelial Cell,Urine Moderate per lpf (None-Few); WBC,Urine 0-3 per hpf (0-3)
--- NOTE | 2016-05-18 16:47 | Electrocardiograph Report ---
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
[2016-05-19] MEDS: Insulin LISPRO 300 UNITS/3 ML VIAL SQ SCH ×3 (08:00→17:08)
[2016-05-19] MEDS: Vitamin B Complex/Vit C/Vit E 1 EACH TABLET PO SCH (08:01)
[2016-05-19] MEDS: OXcarbazepine 150 MG TABLET PO SCH ×3 (08:01→19:59)
[2016-05-19] MEDS: APIXABAN 5 MG TABLET PO SCH ×2 (08:01→20:00)
[2016-05-19] MEDS: Losartan/HCTZ 50-12.5 TABLET PO SCH (08:01)
[2016-05-19] MEDS: Multivit/Ca/Min/Fe/FA 1 TAB TABLET PO SCH (08:01)
[2016-05-19] MEDS: Baclofen 10 MG TABLET PO SCH ×2 (08:02→19:59)
[2016-05-19] MEDS: Gabapentin 300 MG CAPSULE PO SCH ×3 (08:02→20:00)
--- NOTE | 2016-05-19 09:01 | Cardiology Progress Note ---
Date of Encounter: 05/19/16 Time of Encounter: 08:59 Assessment and Plan (1) Atrial flutter Current Visit: Yes Status: Acute Patient with history of afib versus aflutter on previous hospitalization 04/19/16 Patient had FERNANDA cardioversion per Dr. Hancock on 04/20/16 with return to NSR after one attempt ECHO 04/19/16 demonstrated afib RVR, LVEF 55%, mild LVH, normal LV chamber and function, intermediate diastolic function, normal RV structure and function Patient currently on Metoprolol 50mg BID and Cardizem ggt at 5mg/hr Primary team increased Metoprolol from 25mg to 50mg BID today EKG upon admission atrial flutter with HR 135 Today, EKG consistent with atrial flutter with rate-controlled 80s-902 Per nurse, patient's rate greater than 100 with minimal activity Plan: Continue Metoprolol 50mg BID Plan to increase cardizem drip to 10mg/hr Consider increasing BB tomorrow to achieve tighter rate control Will medically manage patient at this time with plan for outpatient ablation When rate controlled with be ready for D/C Qualifiers: Atrial flutter type: typical Qualified Code(s): I48.3 - Typical atrial flutter Discussion w patient/family: The assessment and plan as outlined above was discussed with the patient and/or family members who expressed understanding and agreement. All questions were answered. Thank you for involving us in the care of your patient. Please call with any questions. Subjective Principal diagnosis: Atrial Flutter Interval history: Continues to be in AFL with intermittent RVR. Objective Vital Signs, Last 4 Hours Temp Pulse Resp BP Pulse Ox 05/19/16 07:07 98.7 F 83 16 124/99 97 05/19/16 07:00 93 16 140/104 97 General: Conversant, No Apparent Distress HEENT: Atraumatic, Normocephaly, Mucus Membranes Moist Neck: No JVD, Normal carotid pulses Cardiac: Other (tachy, irreg.) Lungs: Normal Breath Sounds, No Wheeze, Rales, Rhonchi Abdomen: Soft, Non-Tender Results 05/18/16 04:40 05/18/16 04:40 Consult Discharge Plan - Plan Referrals: Arnold Dan MD [Primary Care Provider] -
--- NOTE | 2016-05-19 15:00 | Internal Med Progress Note ---
Date of Encounter: 05/19/16 Time of Encounter: 14:58 - Assessment and plan (1) Atrial fibrillation with RVR Current Visit: Yes Status: Acute Assessment and plan: Atrial flutter with rapid ventricular response Unclear etiology, patient was cardioverted last month, heart rate is persistently elevated between 100- 150 Cardiology Increased metoprolol from 25 twice a day to 75 mg twice a day Continue Cardizem drip, rate increased from 5 to 10 Cardiology recommendations appreciated Consider possible ablation as outpatient after discharge (2) Diabetes mellitus Current Visit: Yes Status: Chronic Assessment and plan: Continue insulin sliding scale Qualifiers: Diabetes mellitus type: type 2 Diabetes mellitus complication status: with hyperglycemia 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 insulin use: without [facility] long term care use Qualified Code(s): E11.65 - Type 2 diabetes mellitus with hyperglycemia (3) Renal neoplasm Current Visit: No Status: Acute Assessment and plan: CT scan from April shows an large obstructive Staghorn calculus in the left renal pelvis, a 4.6 cm mass in the mid inferior left kidney concerning for renal cell carcinoma The patient denies any dysuria at the moment, we will order a UA as there is no clear trigger for his elevated heart rate The patient was scheduled to have a Left nephrectomy , we will try to contact urology if we are able to control his heart rate as apparently last month he was recommended to get his heart rate under control before scheduling any surgical procedure (4) TBI (traumatic brain injury) Current Visit: No Status: Chronic Qualifiers: Encounter type: sequela Qualified Code(s): S06.9X0S - Unspecified intracranial injury without loss of consciousness, sequela (5) Hypertension Current Visit: Yes Status: Chronic Qualifiers: Hypertension type: essential hypertension Qualified Code(s): I10 - Essential (primary) hypertension (6) Tobacco abuse Current Visit: No Status: Chronic Assessment and plan: Smoking cessation counseling Nicotine patch offered - Subjective Interval history: Heart rate goes to the 130s with minimal activity Denies any palpitations at the moment, no shortness of breath, no chest pain, no fevers or chills. Has been complaining of a headache since Saturday when he noticed that his heart rate was very elevated. - Constitutional Vitals: Temp Pulse Resp BP Pulse Ox 97.8 F 74 18 136/92 97 05/19/16 11:11 05/19/16 12:00 05/19/16 11:11 05/19/16 12:00 05/19/16 11:11 General appearance: Present: cooperative, mild distress, A&O X 3, answers questions appropriately - Head Head exam: Present: atraumatic, normocephalic - Eye Eye exam: Present: PERRL, conjuntiva pink, sclera anicteric Pupils: Present: PERRL - Neck Neck exam general surgery: Present: supple, trachea midline. Absent: lymphadenopathy - Respiratory Respiratory exam: Present: CTAB. Absent: accessory muscle use, rales, rhonchi, wheezes - Cardiovascular Cardiovascular exam: Present: irregular rhythm, RRR, +S1, +S2, tachycardia. Absent: diastolic murmur, gallop, rubs, systolic murmur - GI/Abdominal GI/Abdominal exam: Present: normal bowel sounds, soft, no peritoneal signs. Absent: distended, tenderness - Extremities Exam Extremities exam: Present: warm, radial pulses palpable and symetrical. Absent : calf tenderness, cyanotic, pedal edema - Neurological Exam Neurological exam: Present: CN II-XII intact, oriented X3, no focal deficits. Absent: pronater drift, facial droop, speech deficit - Skin Skin exam: Present: dry, intact Internal Medicine: Result - Labs CBC & Chem 7: 05/18/16 04:40 05/18/16 04:40 Consult Discharge Plan - Plan Referrals: Arnold Dan MD [Primary Care Provider] -
[2016-05-20] MEDS: Insulin LISPRO 300 UNITS/3 ML VIAL SQ SCH ×3 (00:44→11:36)
[2016-05-20] MEDS: Gabapentin 300 MG CAPSULE PO SCH (08:04)
[2016-05-20] MEDS: OXcarbazepine 150 MG TABLET PO SCH (08:04)
[2016-05-20] MEDS: APIXABAN 5 MG TABLET PO SCH (08:04)
[2016-05-20] MEDS: Vitamin B Complex/Vit C/Vit E 1 EACH TABLET PO SCH (08:04)
[2016-05-20] MEDS: Baclofen 10 MG TABLET PO SCH (08:04)
[2016-05-20] MEDS: Multivit/Ca/Min/Fe/FA 1 TAB TABLET PO SCH (08:04)
--- NOTE | 2016-05-20 10:09 | Cardiology Progress Note ---
Date of Encounter: 05/20/16 Time of Encounter: 10:07 Assessment and Plan (1) Atrial flutter Current Visit: Yes Status: Acute Converted to NSR overnight. Plan would be to treat medically and arrange oupt atrial flutter ablation. Qualifiers: Atrial flutter type: typical Qualified Code(s): I48.3 - Typical atrial flutter Discussion w patient/family: The assessment and plan as outlined above was discussed with the patient and/or family members who expressed understanding and agreement. All questions were answered. Thank you for involving us in the care of your patient. Please call with any questions. Subjective Principal diagnosis: Atrial Flutter Interval history: Converted to NSR overnight. Objective Vital Signs, Last 4 Hours Temp Pulse Resp BP Pulse Ox 05/20/16 08:00 93 L 05/20/16 07:23 97 F L 84 17 05/20/16 07:08 97 F L 17 84 127/84 General: Conversant, No Apparent Distress HEENT: Atraumatic, Normocephaly, Mucus Membranes Moist Neck: No JVD, Normal carotid pulses Cardiac: Reg Rate and Rhythm, Normal S1 and S2, No Murmur Lungs: Normal Breath Sounds, No Wheeze, Rales, Rhonchi Abdomen: Soft, Non-Tender Musculoskeletal: No Chest Wall Tenderness Results 05/18/16 04:40 05/18/16 04:40 Consult Discharge Plan - Plan Referrals: Arnold Dan MD [Primary Care Provider] -
[2016-05-20 11:02] VITALS: BP 127/97
--- NOTE | 2016-05-20 13:11 | Electrocardiograph Report ---
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
--- NOTE | 2016-05-20 13:18 | Discharge Summary ---
Date of Encounter: 05/20/16 Time of Encounter: 13:16 - Discharge Diagnosis (1) Atrial fibrillation with RVR Priority: Primary Status: Acute Comments: Atrial flutter with rapid ventricular response Unclear etiology, patient was cardioverted last month (2) Diabetes mellitus Priority: Secondary Status: Chronic Qualifiers: Diabetes mellitus type: type 2 Diabetes mellitus complication status: with hyperglycemia Diabetes mellitus usp insulin use: without usp use Qualified Code(s): E11.65 - Type 2 diabetes mellitus with hyperglycemia (3) Renal neoplasm Priority: Secondary Status: Acute (4) TBI (traumatic brain injury) Priority: Secondary Status: Chronic Qualifiers: Encounter type: sequela Qualified Code(s): S06.9X0S - Unspecified intracranial injury without loss of consciousness, sequela (5) Hypertension Priority: Secondary Status: Chronic Qualifiers: Hypertension type: essential hypertension Qualified Code(s): I10 - Essential (primary) hypertension (6) Tobacco abuse Priority: Secondary Status: Chronic - Discharge Medications Prescriptions: Metoprolol [Lopressor] 75 mg PO BID #60 tablet Home Medications: Baclofen [Lioresal] 20 mg PO BID 12/22/14 [History] Losartan/Hydrochlorothiazide [Hyzaar 100-25 Tablet] 1 tab PO DAILY 12/22/14 [ History] Pravastatin Sodium [Pravachol] 40 mg PO HS 12/22/14 [History] TraMADol [Ultram] 50 mg PO BID PRN 12/22/14 [History] Gabapentin 600 mg PO TID 12/23/15 [History] Multivitamin [Multivitamins] 1 each PO DAILY 12/23/15 [History] Omeprazole [PriLOSEC] 20 mg PO BID 12/23/15 [History] Oxcarbazepine 300 mg PO TID 12/23/15 [History] Sertraline [Zoloft] 150 mg PO DAILY 12/23/15 [History] Sitagliptin Phos/Metformin HCl [Janumet Xr 100-1,000 mg Tablet] 1 tab PO DAILY 12/23/15 [History] Vitamin B Complex 1 each PO DAILY 04/19/16 [History] Apixaban [Eliquis] 5 mg PO BID #60 tablet 04/20/16 [Rx] Oxycodone HCl/Acetaminophen [Percocet 5-325 mg Tablet] 1 each PO Q6H PRN [History] Metoprolol [Lopressor] 75 mg PO BID #60 tablet 05/20/16 [Rx] Allergies/Adverse Reactions: Allergies dulaglutide [From [facility]] Adverse Reaction (Verified 05/14/16 16:38) Liukiness Procedures/tests Complete & Pending: Procedures Performed prior 72 hours Category Date Time Status ECG 12 lead ECG [ECG] Routine Y 05/19/16 20:35 Completed Date of admission: 05/19/16 15:00 Primary care physician: Arnold Dan - Patient Status Disposition: Home, Self-Care Condition: Good - Discharge Instructions Follow Up With: Arnold Dan MD [Primary Care Provider] - Additional Instructions: Follow with primary care physician within the next 7 days, follow with cardiology on Saturday. Increase metoprolol from 25 mg twice a day to up to 75 g twice a day. New prescription sent to [facility] pharmacy - Diet and Activity Activity: resume usual activities as tolerated Diet: diabetic diet, low fat, low cholesterol Hospital course: Mr. Olson is a 50 year old male with PMHx of TBI, A fib on Eliquis and metoprolol who presented to the hospital on 05/14/16 with racing heart. Patient stated that he was recently diagnosed with afib in April. Patient had a FERNANDA cardioversion per Dr. Hernandez on 04/20/16 with return to NSR after one attempt. Patient was discharged to home. Since the ablation, patient has been checking his HR daily. On 05/14/16, patient noted that his HR was greater than 120. He presented to [facility] for this problem and EKG revealed atrial flutter. Patient was going to be admitted, but decided to sign out AMA because his daughter was in labor at the time. 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 Patient described new headache as sharp, throbbing sensations in the frontal and parietal region. Patient stated that he could feel his heartbeat in his head. Patient admits to racing heart. Patient has not had a stress test or heart cath in the past. Patient states that he has been compliant with Metoprolol and Eliquis following his last hospitalization. CT scan from April shows an large obstructive Staghorn calculus in the left renal pelvis, a 4.6 cm mass in the mid inferior left kidney concerning for renal cell carcinoma The patient denies any dysuria, UA did not demostrate infection The patient was scheduled to have a Left nephrectomy , needs to follow up with urology after getting his heart rate under control to schedule the surgical procedure Was started on a Cardizem drip, rate increased from 5 to 10, then it was discontinued , Dr Gutierrez recommended to continue metoprolol alone. Cardiology recommended ablation as outpatient after discharge Cardiology Increased metoprolol from 25 twice a day to 75 mg twice a day Time spent discussing smoking cessation with patient: 3 to 10 minutes - Time Spent with Patient Total time spent providing and/or coordinating discharge services: Greater than 30 minutes (40 min) - Constitutional Vitals: Temp Pulse Resp BP Pulse Ox 97.3 F L 70 20 127/97 97 05/20/16 10:56 05/20/16 11:01 05/20/16 11:01 05/20/16 11:01 05/20/16 11:01 General appearance: Present: cooperative, mild distress, A&O X 3, answers questions appropriately - Head Head exam: Present: atraumatic, normocephalic - Eye Eye exam: Present: PERRL, conjuntiva pink, sclera anicteric Pupils: Present: PERRL - Neck Neck exam general surgery: Present: supple, trachea midline. Absent: lymphadenopathy - Respiratory Respiratory exam: Present: decreased breath sounds, CTAB. Absent: accessory muscle use, rales, rhonchi, wheezes - Cardiovascular Cardiovascular exam: Present: RRR, +S1, +S2. Absent: diastolic murmur, gallop, rubs, systolic murmur - GI/Abdominal GI/Abdominal exam: Present: normal bowel sounds, soft, no peritoneal signs. Absent: distended, tenderness - Extremities Exam Extremities exam: Present: warm, radial pulses palpable and symetrical. Absent : calf tenderness, cyanotic, pedal edema - Neurological Exam Neurological exam: Present: CN II-XII intact, oriented X3, no focal deficits. Absent: pronater drift, facial droop, speech deficit - Skin Skin exam: Present: dry, intact
--- NOTE | 2016-05-21 09:35 | Electrocardiograph Report ---
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
== END 2016-05-20 15:15 | disposition home or self-care (01) | DRG 310 ==
LOC: EMEROO 14:05 → 2NENU 14:05
PROVIDERS: ADMIT Internal Medicine; ATTEND Internal Medicine

== ENCOUNTER 2016-07-19 06:27 | Inpatient (IN) ==
[2016-07-19] MEDS ORDERED: Lidocaine -MPF 1% 2 ML VIAL ID ONE (06:47)
[2016-07-19] MEDS ORDERED: CeFAZolin Pre 2,000 MG/100 ML 2,000 MG/100 ML BAG IVPB ONE (06:47)
[2016-07-19] MEDS ORDERED: Albuterol 2.5 MG/3 ML NEBULIZER IH ONE (06:48)
[2016-07-19] MEDS ORDERED: Albuterol 2.5 MG/3 ML NEBULIZER ONE (06:50)
[2016-07-19] MEDS: Ringers Solution, Lactated 1,000 ML IVC SCH ×2 (06:59→09:07)
--- NOTE | 2016-07-19 07:02 | Urology History & Physical ---
Date of Encounter: 07/19/16 Time of Encounter: 07:00 Assessment and Plan (1) Left renal mass Current Visit: Yes Status: Acute to Or today for lap nephrectomy History of Present Illness Chief complaint: left renal mass HPI: Mr. Olson is a 51 year old male with history of left renal mass and stones in his left kidney. here today for nephrectomy. Past Med Surg Social Fam HX - Past Medical History Medical history: atrial fibrillation, diabetes, hyperlipidemia, hypertension, kidney stones, other Psychiatric history: no psych history - Past Surgical History Surgical History: herniorrhaphy, orthopedic, other, sinus surgery - Social History Smoking Status: Current every day smoker Smokeless Tobacco Status: No Alcohol use: none Drug use: none Medications and Allergies Baclofen [Lioresal] 20 mg PO BID 12/22/14 [History] Losartan/Hydrochlorothiazide [Hyzaar 100-25 Tablet] 1 tab PO DAILY 12/22/14 [ History] Pravastatin Sodium [Pravachol] 40 mg PO HS 12/22/14 [History] TraMADol [Ultram] 50 mg PO BID PRN 12/22/14 [History] Gabapentin 600 mg PO TID 12/23/15 [History] Multivitamin [Multivitamins] 1 each PO DAILY 12/23/15 [History] OXcarbazepine [Oxcarbazepine] 300 mg PO TID 12/23/15 [History] Omeprazole [PriLOSEC] 20 mg PO BID 12/23/15 [History] Sertraline [Zoloft] 150 mg PO DAILY 12/23/15 [History] Sitagliptin Phos/Metformin HCl [Janumet Xr 100-1,000 mg Tablet] 1 tab PO DAILY 12/23/15 [History] Vitamin B Complex 1 each PO DAILY 04/19/16 [History] Apixaban [Eliquis] 5 mg PO BID #60 tablet 04/20/16 [Rx] Oxycodone HCl/Acetaminophen [Percocet 5-325 mg Tablet] 1 each PO Q6H PRN [History] Metoprolol [Lopressor] 75 mg PO BID #60 tablet 05/20/16 [Rx] [facility] Adverse Reaction (Verified 05/14/16 16:38) Shakiness Review of Systems - Constitutional no chills - EENT Nose, mouth and throat: no dizziness - Cardiovascular no chest pain Exam Initial Vital Signs Temp Pulse Resp BP Pulse Ox 97.8 F 84 18 125/83 95 07/19/16 06:46 07/19/16 06:46 07/19/16 06:46 07/19/16 06:46 07/19/16 06:46 - General physical appearance Present: well developed - Respiratory Present: normal respiratory effort - Cardiovascular Cardiovascular exam IM: RRR - Abdomen Abdomen: Present: soft Urology Results - Labs All other labs normal.
--- NOTE | 2016-07-19 07:04 | History & Physical Report ---
Date of Encounter: 07/19/16 Time of Encounter: 07:04 24 Hour HP Update - Instructions Instructions: If the History and Physical is less than 30 days old and was completed prior to A.M. admission and or procedure and has NOT been updated on calendar day of procedure please complete this update prior to performing procedure. - Update Patient reports changes in Medical Condition: No Changes in examination, assessment, or condition: No Changes in Medication: No Preop tests/diagnostics Reviewed: Yes Surgery Remains Indicated: Yes Consent for Planned Operative Procedure(s) Verified: Yes - Pre-Operative Checklist Preoperative Checklist Indicated: Yes Prophylactic Antibiotic Ordered: Yes Is VTE Prophylaxis Indicated?: Yes
--- NOTE | 2016-07-19 07:05 | Anesthesia Evaluation PreOp ---
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 Other Medical History: Renal (left renal mass), Diabetes Type II, GERD Anesthesia History: No Prior Anesthetic Complications, Past Anesthesia Alcohol Use: none Drug use: none Medications and Allergies Baclofen [Lioresal] 20 mg PO BID 12/22/14 [History] Losartan/Hydrochlorothiazide [Hyzaar 100-25 Tablet] 1 tab PO DAILY 12/22/14 [ History] Pravastatin Sodium [Pravachol] 40 mg PO HS 12/22/14 [History] TraMADol [Ultram] 50 mg PO BID PRN 12/22/14 [History] Gabapentin 600 mg PO TID 12/23/15 [History] Multivitamin [Multivitamins] 1 each PO DAILY 12/23/15 [History] OXcarbazepine [Oxcarbazepine] 300 mg PO TID 12/23/15 [History] Omeprazole [PriLOSEC] 20 mg PO BID 12/23/15 [History] Sertraline [Zoloft] 150 mg PO DAILY 12/23/15 [History] Sitagliptin Phos/Metformin HCl [Janumet Xr 100-1,000 mg Tablet] 1 tab PO DAILY 12/23/15 [History] Vitamin B Complex 1 each PO DAILY 04/19/16 [History] Apixaban [Eliquis] 5 mg PO BID #60 tablet 04/20/16 [Rx] Oxycodone HCl/Acetaminophen [Percocet 5-325 mg Tablet] 1 each PO Q6H PRN [History] Metoprolol [Lopressor] 75 mg PO BID #60 tablet 05/20/16 [Rx] Allergies dulaglutide [From [facility]] Adverse Reaction (Verified 05/14/16 16:38) Shakiness - Meds/Allergy Pre-op Review Medications Reviewed: Yes Allergies Reviewed: Yes Beta Blockers on Current Med List: Yes If Beta Blockers taken, Date/Time (Last Dose taken): 07/19/2016 at 0530 Anesthesia Results - Labs Laboratory Tests 07/02/16 07/02/16 07/02/16 09:57 09:57 09:57 WBC 11.7 H Hgb 13.2 Hct 38.1 Plt Count 228 PT 11.8 INR 1.1 APTT 33.1 Sodium 141 Potassium 4.2 BUN 20 Creatinine 1.19 - Imaging EKG: report reviewed (06/12/2016 SR, 1st degree AV block septal infarct) Additional studies: 06/12/2016 EP study and ablation successful empiric ablation of A-Flutter 04/09/2016 Echo A-Fib with RVR LVEF 55% mild concentric LVH indeterminate diastolic function moderately dilated LA no significant valvular dysfunction Anesthesia Exam O2 Sat Height 1.85 m Height 1.85 m Weight 105.687 kg Weight 105.687 kg O2 Sat by Pulse Oximetry 95 Vital Signs Temp Pulse Resp BP Pulse Ox 97.8 F 84 18 125/83 95 07/19/16 06:46 07/19/16 06:46 07/19/16 06:46 07/19/16 06:46 07/19/16 06:46 Blood Glucose* 161 Height: 6'1'' Weight: 233 lbs NPO (# of Hours): 8 Pain Scale: 0 Pain Scale Used: Numeric (1 - 10) - HEENT Pupil (Motor): EOMI Mallampati: III Teeth: Edentulous Oral Opening: Greater than 3 - HOTEL ASSISTANT GENERAL MANAGER LOC: Oriented HOTEL ASSISTANT GENERAL MANAGER Motor: Normal RUE, Normal LUE, Normal RLE, Normal LLE, Normal Face HOTEL ASSISTANT GENERAL MANAGER Sensory: Normal: RUE, LUE, RLE, LLE, Face - Cardiac Rhythm: Regular Murmur: None - Pulmonary Breath Sounds: bilateral Clear Respiratory Effort: Symmetrical Anesthesia Assess/Plan ASA Score: 3 Modified Christal Scale for Level of Consciousness: Cooperative, oriented, and tranquil Anesthetic Plan: General Monitoring Plan: Standard Monitors Recovery Plan: PACU
[2016-07-19] MEDS ORDERED: *HR* FentaNYL (PF) 100 MCG/2 ML VIAL ONE (07:15)
[2016-07-19] MEDS ORDERED: *HR* Rocuronium Bromide 50 MG/5 ML VIAL ONE (07:15)
[2016-07-19] MEDS ORDERED: *HR* Midazolam HCl 2 MG/2 ML VIAL ONE (07:15)
[2016-07-19] MEDS ORDERED: *HR* Succinylcholine 200 MG/10 ML VIAL IVP ONE (07:15)
[2016-07-19] MEDS ORDERED: *HR* Phenylephrine 10 MG/ML VIAL ONE (07:15)
[2016-07-19] MEDS ORDERED: Lidocaine -MPF 2% 2 ML VIAL ONE (07:15)
[2016-07-19] MEDS ORDERED: *HR* Propofol 200 MG/20 ML VIAL IVP ONE (07:15)
[2016-07-19] MEDS ORDERED: EPHEDrine 50 MG/ML VIAL ONE (07:16)
[2016-07-19] MEDS ORDERED: Water for inj. (sterile) 10 ML IV ONE (07:20)
[2016-07-19] MEDS ORDERED: *HR* HYDROmorphone 2 MG/ML SYRINGE ONE (08:20)
[2016-07-19] MEDS ORDERED: Dexamethasone 4 MG/ML VIAL ONE (08:27)
[2016-07-19] MEDS ORDERED: Ondansetron 4 MG/2 ML VIAL ONE (08:27)
[2016-07-19] MEDS ORDERED: *HR* Promethazine 25 MG/ML VIAL IVP PRN (08:28)
[2016-07-19] MEDS ORDERED: Ondansetron 4 MG/2 ML VIAL IVP ONE (08:28)
[2016-07-19] MEDS ORDERED: *HR* Morphine 2 MG/ML SYRINGE IVP PRN (08:28)
[2016-07-19] MEDS ORDERED: *HR* Labetalol 100 MG/20 ML MDV IVP PRN (08:28)
[2016-07-19] MEDS ORDERED: *HR* Meperidine 25 MG/ML SYRINGE IVP PRN (08:28)
[2016-07-19] MEDS ORDERED: Neostigmine Methylsulfate 3 MG/3 ML SYRINGE ONE (08:56)
--- NOTE | 2016-07-19 09:45 | Operative Note ---
Date of procedure: 07/19/16 Pre-op diagnosis: left renal mass Post-op diagnosis: same Procedure: Left hand-assisted laparoscopic nephrectomy Anesthesia: SHAUN Surgeon: Avi Saenz Specimen: Left kidney Condition: stable Disposition: PACU Procedure in Detail: Patient was prepped and draped in normal sterile fashion. Timeout procedure performed. Then made a incision just cranial to the umbilicus. This was carried down to where I entered the peritoneal cavity. Patient had some adhesions around the umbilicus. I decided to extend my incision cranially to allow access for the hand port. Hand was in place in the abdominal cavity. 2 12 millimeter assistant portfolio manager ports were then placed in standard fashion. At this point I then used a Harmonic scalpel to reflect the colon medially. Kidney was easily visualized. Identified the left ureter easily. I then carried my dissection cranially was able to identify the renal vein and artery. I then placed the 60 mm stapler into the abdomen and stapled the vein and artery at once. I was unable to dissect the remaining portion of the kidney free. I did use one more staple ice at the level of the adrenal gland. Left kidney was removed and the patient's abdomen. I then revisualized the left kidney space with no active bleeding seen. Hand port was then removed. All trochars were removed. Fascia was closed using running 0 PDS. Skin was then closed using 4- 0 Monocryl followed by Dermabond. Patient taken to PACU in stable condition
[2016-07-19] MEDS: *HR* HYDROmorphone (PF) 1 MG/ML SYRINGE IVP PRN ×3 (10:00→10:17)
--- NOTE | 2016-07-19 10:46 | Anesthesia Evaluation Post Op ---
Date of Encounter: 07/19/16 Time of Encounter: 10:44 - Vital Signs Vital Signs: Selected Entries 07/19/16 10:30 Temperature 97.2 F L Pulse Rate 60 Respiratory Rate 12 Blood Pressure 123/90 O2 Sat by Pulse Oximetry 94 Oxygen Flow Rate (LPM) 4 - Lungs Lungs: Clear Ascult./Percussion - Airway Airway: Non-obstructed - Cardiovascular Regular Rate - Mental Status Mental Status: Alert & Oriented, Answers Appropriately - Pain Pain Scale used: Numeric (1 - 10) (6) - Nausea Vomiting Nausea Vomiting: Not Present - Hydration Hydration: Ice chips - Discharge PostOp Status: Transfer Patient to floor
[2016-07-19] MEDS ORDERED: Naloxone 0.4 MG/ML INJ IVP PRN (11:26)
[2016-07-19] MEDS ORDERED: Ondansetron 4 MG/2 ML VIAL IVP PRN (11:26)
[2016-07-19] MEDS ORDERED: *HR* OxyCODONE/APAP 5/325 TABLET PO PRN (11:26)
[2016-07-19] MEDS: 0.9 % Sodium Chloride 1,000 ML IVC SCH ×2 (12:08→20:35)
[2016-07-19] MEDS: Gabapentin 300 MG CAPSULE PO SCH ×2 (15:03→20:30)
[2016-07-19] MEDS: OXcarbazepine 150 MG TABLET PO SCH ×2 (15:06→20:29)
[2016-07-19] MEDS: Baclofen 10 MG TABLET PO SCH (20:29)
[2016-07-19] MEDS: *HR* Morphine 2 MG/ML SYRINGE IVP PRN (20:30)
[2016-07-20] MEDS: 0.9 % Sodium Chloride 1,000 ML IVC SCH ×2 (04:04→12:42)
--- NOTE | 2016-07-20 06:51 | Urology Progress Note ---
Date of Encounter: 07/20/16 Time of Encounter: 06:50 - Assessment and Plan (1) Left renal mass Current Visit: Yes Status: Acute Assessment and plan: sp nephrectomy. doing well. continue ambulation, clears at this sadie. Progress Note Narrative: POD 1 from left HALN. doing well. minimal pain. tylor clears. labs pending. Objective Initial Vital Signs Temp Pulse Resp BP Pulse Ox 97.8 F 84 18 125/83 95 07/19/16 06:46 07/19/16 06:46 07/19/16 06:46 07/19/16 06:46 07/19/16 06:46 - General physical appearance Present: well developed - Abdomen Present: soft (incisions c/d/i) - VTE Documentation of Mechanical Device: Intermittent pneumatic compression device Consult Discharge Plan - Plan Referrals: Avi Saenz MD [Partnered Physician] - Arnold Dan MD [Primary Care Provider] -
[2016-07-20] MEDS: Baclofen 10 MG TABLET PO SCH (08:33)
[2016-07-20] MEDS: OXcarbazepine 150 MG TABLET PO SCH ×2 (08:33→15:55)
[2016-07-20] MEDS: Gabapentin 300 MG CAPSULE PO SCH ×2 (08:34→15:55)
[2016-07-20] MEDS: *HR* Morphine 2 MG/ML SYRINGE IVP PRN (08:37)
[2016-07-20 08:39] LABS: BUN/Creatinine Ratio 17 (6-26); Blood Urea Nitrogen 18 mg/dL (8-26); Calcium 8.7 mg/dL (8.6-10.8); Carbon Dioxide 27 mEq/L (19-29); Chloride 103 mEq/L (98-109); Glucose 129 mg/dL (70-99); Osmolality,Calculated 290 (280-300); Potassium 4.7 mEq/L (3.5-4.5); Sodium 138 mEq/L (136-145); eGFR For African Americans > 60 (> 60); eGFR For Non-African Americans > 60 (> 60)
[2016-07-20] MEDS ORDERED: METFORMIN HCL PO SCH (09:00)
[2016-07-20] MEDS ORDERED: SITAGLIPTIN PHOS PO SCH (09:00)
[2016-07-20] MEDS ORDERED: Multivit/Ca/Min/Fe/FA 1 TAB TABLET PO SCH (09:00)
[2016-07-20] MEDS ORDERED: Losartan/HCTZ 50-12.5 TABLET PO SCH (09:00)
[2016-07-20 15:59] VITALS: BP 153/88
--- NOTE | 2016-07-20 17:03 | Discharge Summary ---
Date of Encounter: 07/20/16 Time of Encounter: 17:02 - Discharge Diagnosis (1) Left renal mass Priority: Primary Status: Acute - Discharge Medications Prescriptions: OxyCODONE/APAP 5/325 [Percocet 5/325 MG] 2 each PO Q4HR PRN #30 tablet PRN Reason: pain 1-5 Home Medications: Baclofen [Lioresal] 20 mg PO BID 12/22/14 [History] Losartan/Hydrochlorothiazide [Hyzaar 100-25 Tablet] 1 tab PO DAILY 12/22/14 [ History] Pravastatin Sodium [Pravachol] 40 mg PO DAILY 12/22/14 [History] TraMADol [Ultram] 50 mg PO BID PRN 12/22/14 [History] Gabapentin 600 mg PO TID 12/23/15 [History] Multivitamin [Multivitamins] 1 tab PO DAILY 12/23/15 [History] OXcarbazepine [Oxcarbazepine] 300 mg PO TID 12/23/15 [History] Omeprazole [PriLOSEC] 20 mg PO BID 12/23/15 [History] Sertraline [Zoloft] 150 mg PO DAILY 12/23/15 [History] Sitagliptin Phos/Metformin HCl [Janumet Xr 100-1,000 mg Tablet] 1 tab PO DAILY 12/23/15 [History] Vitamin B Complex 1 tab PO DAILY 04/19/16 [History] Oxycodone HCl/Acetaminophen [Percocet 5-325 mg Tablet] 1 tab PO Q6H PRN [History] Metoprolol [Lopressor] 75 mg PO BID #60 tablet 05/20/16 [Rx] OxyCODONE/APAP 5/325 [Percocet 5/325 MG] 2 each PO Q4HR PRN #30 tablet 07/20/16 [Rx] Allergies/Adverse Reactions: Allergies dulaglutide [From [facility]] Adverse Reaction (Verified 05/14/16 16:38) Shakiness Procedures and tests throughout hospitalization: left hand assisted lap nephrectomy Labs on day of discharge: Labs from last 24 hours 07/20/16 07:55 Sodium 138 Potassium 4.7 H Chloride 103 Carbon Dioxide 27 BUN 18 Creatinine 1.08 Est GFR ( Amer) > 60 Est GFR (Non-Af Amer) > 60 BUN/Creatinine Ratio 17 Glucose 129 H Calculated Osmolality 290 Calcium 8.7 Date of admission: 07/19/16 10:46 Primary care physician: Arnold Dan Discharging clinician: Avi Saenz Anticipated date of discharge: 07/20/16 - Patient Status Disposition: Home, Self-Care Condition: Good Functional capacity at discharge: independent ambulation Overall status at discharge: patient is progressing back to baseline - Discharge Instructions Follow Up With: Arnold Dan MD [Primary Care Provider] - Avi Saenz MD [Partnered Physician] - ( ) - Diet and Activity Activity: increase activity as tolerated (no heavy lifting more than 10lbs for 4 weeks) Diet: advance to your usual diet - Hospital Course Hospital course: Mr. Olson is a 51 year old male status post left hand-assisted laparoscopic nephrectomy. Patient did well postoperatively. Tolerated diet. had flatus. labs stable. ambulated early. Time spent discussing smoking cessation with patient: 3 to 10 minutes - Time Spent with Patient Total time spent providing and/or coordinating discharge services: Less than 30 minutes Exam Initial Vital Signs Temp Pulse Resp BP Pulse Ox 97.8 F 84 18 125/83 95 07/19/16 06:46 07/19/16 06:46 07/19/16 06:46 07/19/16 06:46 07/19/16 06:46 - General physical appearance Present: well developed - Respiratory Present: normal respiratory effort - VTE Documentation of Mechanical Device: Intermittent pneumatic compression device
== END 2016-07-20 17:26 | disposition home or self-care (01) | DRG 661 ==
LOC: SAMDAY 06:27 → 3ANU 10:46
PROVIDERS: ADMIT Urology; ATTEND Urology

== ENCOUNTER 2018-11-27 21:08 | Observation (INO) ==
[2018-11-27] MEDS ORDERED: Aspirin 81 MG TAB.CHEW PO ONE (21:26)
[2018-11-27 21:41] LABS: Basophils % 0.3 %; Eosinophils # 0.2 K/mcL (0.0-0.6); Eosinophils % 1.8 %; Hematocrit 36.9 % (37.5-50.1); Hemoglobin 12.3 g/dL (12.9-16.9); Immature Granulocytes % 0.4 % (0-4); Lymphocytes # 3.4 K/mcL (0.6-4.6); Lymphocytes % 32.4 %; Mean Corpuscular HGB Conc 33.3 g/dL (31.6-35.5); Mean Corpuscular Hemoglobin 31.1 pg (28.0-33.3); Mean Corpuscular Volume 93.4 fL (83.0-100.0); Mean Platelet Volume 8.9 fL (9.4-12.4); Monocytes # 0.9 K/mcL (0.0-1.3); Monocytes % 8.7 %; Neutrophils # 5.9 K/mcL (1.6-8.9); Platelet Count 246 K/mcL (140-400); Red Blood Count 3.95 M/mcL (4.19-5.50); Red Cell Distribution Width 14.3 % (11.5-14.5); Segmented Neutrophils % 56.4 %; White Blood Count 10.4 K/mcL (4.3-11.1)
[2018-11-27] MEDS ORDERED: *HR* FentaNYL (PF) 100 MCG/2 ML VIAL IVP ONE (21:48)
[2018-11-27] MEDS ORDERED: 0.9 % Sodium Chloride 1,000 ML IVC ONE (21:48)
[2018-11-27 21:50] LABS: Prothrombin Time 11.3 Seconds (9.4-12.1)
[2018-11-27 21:59] LABS: BUN/Creatinine Ratio 14 (6-26); Blood Urea Nitrogen 42 mg/dL (6-20); Calcium 9.4 mg/dL (8.6-10.3); Carbon Dioxide 27 mEq/L (23-29); Chloride 99 mEq/L (98-107); Glucose 188 mg/dL (70-105); Osmolality,Calculated 297 (280-300); Potassium 3.9 mEq/L (3.5-5.1); Sodium 136 mEq/L (136-145); Troponin I < 0.03 ng/mL (< 0.04); eGFR For African Americans 27 (> 60); eGFR For Non-African Americans 23 (> 60)
[2018-11-27 22:05] LABS: Lipase 63 Units/L (11-82)
[2018-11-27] MEDS ORDERED: Ondansetron 4 MG/2 ML VIAL IVP PRN (23:30)
[2018-11-27] MEDS ORDERED: Naloxone 0.4 MG/ML INJ IVP PRN (23:30)
[2018-11-27] MEDS ORDERED: Morphine Sulfate 2 MG/ML SYRINGE IVP PRN (23:58)
[2018-11-28] MEDS ORDERED: 0.9 % Sodium Chloride 1,000 ML IVC SCH (00:15)
[2018-11-28] MEDS ORDERED: D5% in Water 1,000 ML IVC PRN (00:25)
[2018-11-28] MEDS ORDERED: Dextrose Gel 15 GM/37.5 ML TUBE PO PRN ×2 (00:25)
[2018-11-28] MEDS ORDERED: *HR* Dextrose 50 % in Water (Syg) 50 ML SYRINGE IVP PRN (00:25)
[2018-11-28] MEDS: Insulin DETEMIR 100 UNIT/ML X5UNITS SQ SCH ×2 (01:04→20:10)
[2018-11-28 02:06] LABS: Basophils % 0.3 %; Eosinophils # 0.2 K/mcL (0.0-0.6); Eosinophils % 1.8 %; Hematocrit 33.7 % (37.5-50.1); Hemoglobin 11.3 g/dL (12.9-16.9); Immature Granulocytes % 0.3 % (0-4); Lymphocytes # 3.1 K/mcL (0.6-4.6); Lymphocytes % 35.8 %; Mean Corpuscular HGB Conc 33.5 g/dL (31.6-35.5); Mean Corpuscular Hemoglobin 30.7 pg (28.0-33.3); Mean Corpuscular Volume 91.6 fL (83.0-100.0); Mean Platelet Volume 9.1 fL (9.4-12.4); Monocytes # 0.7 K/mcL (0.0-1.3); Monocytes % 8.3 %; Neutrophils # 4.6 K/mcL (1.6-8.9); Platelet Count 213 K/mcL (140-400); Red Blood Count 3.68 M/mcL (4.19-5.50); Red Cell Distribution Width 14.3 % (11.5-14.5); Segmented Neutrophils % 53.5 %; White Blood Count 8.7 K/mcL (4.3-11.1)
[2018-11-28 02:28] LABS: Albumin 3.8 g/dL (3.5-5.7); Albumin/Globulin Ratio 1.4 (1.1-2.2); Bilirubin,Total 0.2 mg/dL (0.3-1.0); Calcium 8.7 mg/dL (8.6-10.3); Chol/HDL Ratio 5.3 (0-4.9); Globulin 2.7 g/dL (2.4-3.5); Potassium 3.4 mEq/L (3.5-5.1); Total Protein 6.5 g/dL (6.4-8.9)
[2018-11-28] MEDS: Insulin LISPRO 300 UNITS/3 ML VIAL SQ SCH ×3 (05:46→16:28)
[2018-11-28 08:45] LABS: Estimated Average Glucose 186 mg/dl
[2018-11-28] MEDS: Apixaban 5 MG TABLET PO SCH ×2 (10:59→20:11)
[2018-11-28] MEDS: Gabapentin 300 MG CAPSULE PO SCH ×3 (10:59→20:11)
[2018-11-28] MEDS: 0.9 % Sodium Chloride 1,000 ML IVC SCH ×2 (13:28→19:55)
[2018-11-28 14:50] LABS: Bilirubin,Urine Negative (Negative); Blood,Urine Negative (Negative); Clarity,Urine Clear (Clear); Color,Urine Yellow (Yellow); Glucose,Urine (UA) 500 mg/dL (Normal); Ketones,Urine Negative (Negative); Leukocyte Esterase,Urine Negative (Negative); Nitrite,Urine Negative (Negative); Protein,Urine Negative (Neg-Trace); Specific Gravity,Urine 1.014 (1.010-1.025); Urobilinogen,Urine Normal (Normal)
[2018-11-28 15:11] LABS: Sodium, Urine 61.7 mEq/L
[2018-11-29] MEDS: Insulin LISPRO 300 UNITS/3 ML VIAL SQ SCH ×2 (00:30→06:04)
[2018-11-29 05:18] LABS: Hematocrit 39.5 % (37.5-50.1); Mean Corpuscular HGB Conc 33.9 g/dL (31.6-35.5); Mean Corpuscular Hemoglobin 30.8 pg (28.0-33.3); Mean Corpuscular Volume 90.8 fL (83.0-100.0); Platelet Count 244 K/mcL (140-400); Red Blood Count 4.35 M/mcL (4.19-5.50); White Blood Count 9.6 K/mcL (4.3-11.1)
[2018-11-29 05:26] LABS: Hemoglobin 13.4 g/dL (12.9-16.9)
[2018-11-29 05:48] LABS: Alanine Aminotransferase 10 Units/L (7-52); Albumin/Globulin Ratio 1.3 (1.1-2.2); Alkaline Phosphatase 76 Units/L (34-104); Aspartate Amino Transferase 14 Units/L (13-39); BUN/Creatinine Ratio 23 (6-26); Bilirubin,Total 0.3 mg/dL (0.3-1.0); Blood Urea Nitrogen 26 mg/dL (6-20); Calcium 9.1 mg/dL (8.6-10.3); Carbon Dioxide 25 mEq/L (23-29); Chloride 108 mEq/L (98-107); Globulin 3.1 g/dL (2.4-3.5); Glucose 77 mg/dL (70-105); Osmolality,Calculated 296 (280-300); Potassium 3.6 mEq/L (3.5-5.1); Sodium 141 mEq/L (136-145); Total Protein 7.1 g/dL (6.4-8.9); eGFR For African Americans > 60 (> 60); eGFR For Non-African Americans > 60 (> 60)
[2018-11-29 08:42] VITALS: BP 143/80
[2018-11-29] MEDS: Apixaban 5 MG TABLET PO SCH (10:16)
[2018-11-29] MEDS: Gabapentin 300 MG CAPSULE PO SCH (10:17)
== END 2018-11-29 11:50 | disposition home or self-care (01) ==
LOC: 3BNU 21:08 → EMEROOARM 21:08 → 3BNU 23:16
PROVIDERS: ADMIT Internal Medicine; ATTEND Internal Medicine

== ENCOUNTER 2020-06-27 09:32 | Observation (INO) ==
[2020-07-11] MEDS ORDERED: Naloxone 0.4 MG/ML INJ IVP PRN (10:39)
[2020-07-11 12:50] LABS: BUN/Creatinine Ratio 14 (6-26); Blood Urea Nitrogen 13 mg/dL (6-20); Carbon Dioxide 25 mEq/L (23-29); Chloride 105 mEq/L (98-107); Glucose 297 mg/dL (70-105); Magnesium 2.1 mg/dL (1.6-2.6); Osmolality,Calculated 301 (280-300); Potassium 4.1 mEq/L (3.5-5.1); Sodium 140 mEq/L (136-145); eGFR For African Americans > 60 (> 60); eGFR For Non-African Americans > 60 (> 60)
[2020-07-11] MEDS: OXcarbazepine 150 MG TABLET PO SCH ×2 (13:59→20:54)
[2020-07-11] MEDS: Gabapentin 300 MG CAPSULE PO SCH (20:54)
[2020-07-11] MEDS: Insulin DETEMIR 100 UNIT/ML X5UNITS SUBQ SCH (20:54)
[2020-07-11] MEDS: Apixaban 5 MG TABLET PO SCH (20:55)
[2020-07-11] MEDS ORDERED: Metoprolol 100 MG TABLET PO SCH (21:00)
[2020-07-12] MEDS: OXcarbazepine 150 MG TABLET PO SCH ×3 (07:49→21:00)
[2020-07-12] MEDS: Apixaban 5 MG TABLET PO SCH ×2 (07:49→21:01)
[2020-07-12] MEDS: *HR* Pioglitazone 45 MG TABLET PO SCH (07:49)
[2020-07-12] MEDS: Gabapentin 300 MG CAPSULE PO SCH ×2 (07:49→21:01)
[2020-07-12] MEDS: (Dapagliflozin Propanediol [Farxiga] 10 MG Tablet) PO SCH (07:50)
[2020-07-12] MEDS: Insulin DETEMIR 100 UNIT/ML X5UNITS SUBQ SCH (21:01)
[2020-07-13 07:54] VITALS: BP 160/92
[2020-07-13] MEDS: Gabapentin 300 MG CAPSULE PO SCH (08:52)
[2020-07-13] MEDS: Apixaban 5 MG TABLET PO SCH (08:52)
[2020-07-13] MEDS: *HR* Pioglitazone 45 MG TABLET PO SCH (08:52)
[2020-07-13] MEDS: OXcarbazepine 150 MG TABLET PO SCH (08:52)
[2020-07-13] MEDS: (Dapagliflozin Propanediol [Farxiga] 10 MG Tablet) PO SCH (08:55)
== END 2020-07-13 10:00 | disposition home or self-care (01) ==
LOC: 2ANU
PROVIDERS: ADMIT Internal Medicine Clinical Cardiac Electrophysiology; ATTEND Internal Medicine Clinical Cardiac Electrophysiology